=== PATIENT | female | born 1965 | race Caucasian/White ===

== ENCOUNTER 2024-07-14 17:42 | Emergency (ER) | payer MEDICAID, SELFPAY ==
--- NOTE | ~2024-07-14 | XR_ITS ---
CLINICAL HISTORY: cough --- Additional Notes or Special Instructions: ? outpatient pneumothorax 2 view chest x-ray Comparison: None Findings: Small to moderate right pneumothorax. No evidence of pneumonia. Normal size heart. No acute fracture. IMPRESSION: Right pneumothorax. This document has been electronically signed by: Tino Schrader MD on 07/14/2024 18:29:16
[2024-07-14 17:49] VITALS: BP 143/71; PULSE 92; RESP 19; TEMP 36.6; O2SAT 97; BMI 18.9
--- NOTE | 2024-07-14 17:51 | ED.GENADULT ---
HPI - General Adult General Chief complaint: Upper Respiratory Symptoms Stated complaint: pcp sent to re scan found hole in right lung Time Seen by Provider: 07/14/24 18:25 Source: patient Limitations: no limitations History of Present Illness ED Provider: Alley Paredes PA-C HPI narrative: 59-year-old female with self report of mitral valve prolapse, anxiety, chronic pain on opiate therapy secondary to significant degenerative changes, presents given need for thoracic consult. Patient states she was seen by her primary care provider today for her routine annual physical. Months ago, she had been complaining about a cough, they had scheduled an outpatient chest x-ray, to be performed prior to her annual physical. Patient received a call that there was evidence of a small pneumothorax on the chest x-ray, she was advised to come to the emergency department for emergent assessment. The patient denies chest pain, shortness of breath. She states she has a chronic cough, no change in her symptoms. No fevers. Related Data Allergies Allergy/AdvReac Type Severity Reaction Status Date / Time celecoxib [From CELEBREX] Allergy Intermediate HIVES Verified 07/14/24 17:51 ibuprofen [Ibuprofen] Allergy Intermediate HIVES Verified 07/14/24 17:51 NSAIDS (Non-Steroidal Allergy Unknown HIVES Verified 07/14/24 17:51 Anti-Inflamma [NSAIDS (NON-STEROIDAL ANTI-INFLAMMA] paroxetine [From PAXIL] Allergy Unknown HIVES Verified 07/14/24 17:51 Sulfa (Sulfonamide Allergy Unknown HIVES Verified 07/14/24 17:51 Antibiotics) [SULFA(SULFONAMIDE ANTIBIOTICS)] gabapentin [From NEURONTIN] AdvReac Unknown STOMACH Verified 07/14/24 17:51 UPSET steroid Allergy Unknown Uncoded 07/14/24 17:52 Review of Systems Review of Systems: Yes all other systems are reviewed and are negative Constitutional: Constitutional: Denies fatigue, Denies fever(s) and Denies headache(s) ENT: Denies dizziness and Denies headache(s) Cardiovascular: Cardiovascular: Denies chest pain, Denies dyspnea and Denies dyspnea on exertion Respiratory: Respiratory: Denies cough, Denies dyspnea and Denies dyspnea on exertion Gastrointestinal: Gastrointestinal: Denies abdominal pain, Denies nausea and Denies vomiting Neurologic: Denies dizziness and Denies headache(s) Endocrine: Endocrine: Denies fatigue PMFSH Past Medical History Attestation statement: The following information was validated with the patient. Social History Social History Advance Directives: No Advance Directives Information Provided: No Do you have a plan to hurt others: No Plan Physical Exam ED Vital Signs: Vital Signs - 24 hr 07/14/24 17:49 Temperature 98 F Pulse Rate 92 Respiratory Rate 19 Blood Pressure 143/71 H Pulse Oximetry 97 Oxygen Delivery Method Room Air BMI result Body Mass Index 18.9 Const Other: Alert well-appearing Orientation/consciousness: patient oriented x3 Resp Other: Nonlabored respirations, lungs clear to auscultation Cardio Other: Normal peripheral perfusion Skin Other: Warm dry no rash Neuro General: patient oriented x3, gait normal, no focal motor deficits and CN's II-XI intact bilaterally Psych Other: Cooperative Course Course Course Narrative: RME, this is a rapid medical exam performed by Amado Courtney please refer to primary provider for complete H&P- 59-year-old female presents for evaluation of an abnormal outpatient chest x-ray. She had routine labs and chest x-ray prior to a PCP visit coming up and was told that she has a 3 cm ?hole my lung. ? She endorses chronic cough, worse over the last few weeks plan for repeat chest x-ray Consultations Consultation #1: paged surgery Dr. Randall, no one specific on for thoracic, he says he doesn't do chest tubes.....he recommended to call pulmonology he also states that of the patient is asymptomatic it is appropriate for them to follow up as an outpatient for repeat imaging Time: 18:45 Medical Decision Making Medical Decision Making MDM Narrative: 59-year-old female with self report of mitral valve prolapse, anxiety, chronic pain on opiate therapy secondary to significant degenerative changes, presents given need for thoracic consult. Patient states she was seen by her primary care provider today for her routine annual physical. Months ago, she had been complaining about a cough, they had scheduled an outpatient chest x-ray, to be performed prior to her annual physical. Patient received a call that there was evidence of a small pneumothorax on the chest x-ray, she was advised to come to the emergency department for emergent assessment. The patient denies chest pain, shortness of breath. She states she has a chronic cough, no change in her symptoms. No fevers. Patient states she was a prior smoker, she quit tobacco use 7 years ago, she does not have a formal diagnosis of COPD Problem: Prior smoker History: Per patient I have considered the following differential diagnoses: Pneumothorax Plan: We repeated the chest x-ray, there was evidence of a small pneumothorax. I reached out to the surgical service, I explained the situation, given the patient is asymptomatic, the plan is to have her return to the emergency room tomorrow morning to have a repeat chest x-ray. I explained the situation to the patient she is in agreement and on board with the plan. Discussed the case with my attending. I have independently reviewed the following tests: Chest x-ray:Comparison: None Findings: Small to moderate right pneumothorax. No evidence of pneumonia. Normal size heart. No acute fracture. IMPRESSION: Right pneumothorax. Discharge Plan Discharge Clinical Impression: Pneumothorax Patient Disposition: Home, Self-Care Instructions: Spontaneous Pneumothorax (ED) Additional Instructions: You were found to have a small pneumothorax, see home care instructions. It is unclear how long you have had this finding, it could resolve on its own. In his recommended that you return to the emergency department this morning for a repeat chest x-ray. Bring your paperwork back to triage, the provider we will order a chest x-ray for you. Return precautions for the onset of acute shortness of breath and chest pain on the right side, if you develop symptoms overnight, return to the emergency department. Print Language: Citizen Of [place]
[2024-07-14 19:13] VITALS: BP 128/91; PULSE 82; RESP 18; TEMP 36.8; O2SAT 95
[2024-07-14 20:00] VITALS: BP 128/91; PULSE 82; RESP 18; TEMP 36.8
== END 2024-07-14 20:18 | disposition home or self-care (01) ==
PROVIDERS: Emergency Provider Internal Medicine; PCP Family Medicine
DX: J93.9 Pneumothorax, unspecified (principal); R05.9 Cough, unspecified
CPT/HCPCS: 71046; 99283

== ENCOUNTER → 2024-07-14 17:51 | Outpatient (BNV) | payer MEDICAID, SELFPAY | PROVIDERS: Emergency Provider Internal Medicine; PCP Family Medicine; Visit Provider Radiology Diagnostic Radiology | DX: J93.9 Pneumothorax, unspecified (principal) | CPT/HCPCS: 71046 ==

== ENCOUNTER 2024-07-15 11:49 | Emergency (ER) | payer MEDICAID, SELFPAY ==
--- NOTE | ~2024-07-15 | XR_ITS ---
EXAMINATION: XR CHEST CLINICAL INFORMATION: Known Pneumo yesterday. repeat xray COMPARISON: Prior day, 07/14/2024 at 6:01 PM. TECHNIQUE: 2 views of the chest were obtained. FINDINGS: The cardiac, hilar, and mediastinal contours are normal. Lungs demonstrate no significant change in the mild to moderate size right apical and lateral pneumothorax. Maximal pleural separation in the right apex measures 3.0 cm, unchanged. This finding is stable. There is linear atelectasis abutting the superior margin of the pneumothorax. The left lung is clear without evidence of pneumothorax or effusion. There is left apical pleural parenchymal scarring. There is no focal osseous or soft tissue abnormality. XR/XR chest 2V IMPRESSION: 1. No significant interval change. Stable small to moderate-sized right apical and lateral pneumothorax. Electronically signed by: Cristian Lewis MD 07/15/2024 01:00 PM EDT
[2024-07-15 12:28] VITALS: BP 109/65; PULSE 90; RESP 16; TEMP 37; O2SAT 95; BMI 19.8
--- NOTE | 2024-07-15 12:33 | ED.GENADULT ---
HPI - General Adult General Chief complaint: General Medical Stated complaint: Seen yesterday, returning for chest xray Time Seen by Provider: 07/15/24 18:34 Source: patient Mode of arrival: ambulatory Limitations: no limitations History of Present Illness ED Provider: Luis Frey HPI narrative: 59 yold female with known pneumothroax presents to the ED for repeat x-ray. Patient has been coughing for months and yesterday had an outpatient x-ray which showed pneumothorax and patient came to the ED and had a repeat x-ray which showed pneumothorax. ED provider spoke with surgeon windows migration technician yesterday who states patient can be discharged and return to the ED today for repeat x-ray. Presently patient is asymptomatic. Patient denies any chest pain, shortness of breath, weakness, dizziness or neck swelling. Related Data Allergies Allergy/AdvReac Type Severity Reaction Status Date / Time celecoxib [From CELEBREX] Allergy Intermediate HIVES Verified 07/15/24 12:29 ibuprofen [Ibuprofen] Allergy Intermediate HIVES Verified 07/15/24 12:29 NSAIDS (Non-Steroidal Allergy Unknown HIVES Verified 07/15/24 12:29 Anti-Inflamma [NSAIDS (NON-STEROIDAL ANTI-INFLAMMA] paroxetine [From PAXIL] Allergy Unknown HIVES Verified 07/15/24 12:29 Sulfa (Sulfonamide Allergy Unknown HIVES Verified 07/15/24 12:29 Antibiotics) [SULFA(SULFONAMIDE ANTIBIOTICS)] gabapentin [From NEURONTIN] AdvReac Unknown STOMACH Verified 07/15/24 12:29 UPSET steroid Allergy Unknown Uncoded 07/14/24 17:52 Review of Systems Review of Systems: No pneumothorax Yes all other systems are reviewed and are negative [facility] Social History Social History Advance Directives: No Advance Directives Information Provided: No Physical Exam ED Vital Signs: Vital Signs - 24 hr 07/15/24 12:28 07/15/24 18:37 07/15/24 18:56 Temperature 98.6 F 97.3 F 97.3 F Pulse Rate 90 63 63 Respiratory Rate 16 18 18 Blood Pressure 109/65 128/58 L 128/58 L Pulse Oximetry 95 96 96 Oxygen Delivery Method Room Air Room Air Room Air BMI result Body Mass Index 19.8 Const General: cooperative, healthy appearing, comfortable, no acute distress, well developed, alert, awake and Physically active Orientation/consciousness: patient oriented x3 HENMT Head: Yes normal to inspection, Yes No palpable skull fracture present, Yes normocephalic and Yes atraumatic Eyes General: appearance normal, both eyes and all related structures Neck Neck: Yes normal visual inspection, Yes full ROM, Yes no lymphadenopathy, Yes no meningeal signs, Yes trachea midline, Yes supple, No anterior neck swelling and No tender Chest Chest palpation & inspection: normal inspection of the chest and normal palpation of entire chest wall Resp Other: Pneumothorax Effort & Inspection: normal respiratory effort and able to speak in complete sentences Cardio Jugular venous distension: no JVD Heart sounds: S1 normal heart sound present and S2 normal heart sound present GI Inspection: Yes normal to inspection Palpation (GI): Soft to palpation, not firm, nontender, no guarding and not rigid General: Yes no CVA tenderness Back/Spine/Pelvis Back: no CVA tenderness and No back tenderness Skin General skin exam: no rashes or lesions noted, elasticity normal and turgor normal Neuro General: patient oriented x3, gait normal, tone normal, moves all extremities, Normal light touch and pain sensation, no meningeal signs, no focal motor deficits, CN's II-XI intact bilaterally and normal sensation to monofilament Extrem General: Yes normal to inspection, Yes full ROM and Yes capillary refill normal Psych Appearance: grossly normal, well kempt and not disheveled Course Course Course Narrative: RME: 59 female with pneumothorax diagnosed last night was informed to return today for repeat chest x-ray. Patient is presently asymptomatic. We will do repeat chest x-ray Medical Decision Making Medical Decision Making MDM Narrative: 59-year-old female with known pneumo thorax returns to the ED for repeat x-ray as recommended by surgeon yesterday. Patient denies any chest pain or shortness of breath. Patient well-appearing. Negative for any neck swelling or drooling. Negative for any use of accessory muscles. Patient is speaking in clear sentences. Patient was trying to leave from the waiting room until I convince patient to wait. Patient's chest x-ray shows the same size pneumothorax. Case was discussed with Dr. Singh on-call surgeon and was informed of patient's history, physical exam and diagnostics and vitals. She states since patient is stable she can be discharged and she/ the surgeon clinic call her tomorrow for an appointment. Patient and explained worrisome signs and informed to return to the ED immediately. Differential Diagnosis Differential Diagnoses: The differential diagnosis associated with the presentation includes (Pneumothorax) Admission/Observation Consideration of admission/observation: Escalation of care including admission/observation considered Consult Healthcare Provider Management of the patient was discussed with: [employer] Operator [employer] (Dr. Taylor) Lab Data MDM Lab Attestation statement: I reviewed the patient's lab results. Independent Interpretation I performed an independent interpretation of an: Plain X-Ray Radiology Impression Discussion of test interpretation with radiology: I have reviewed the radiologist's reading. Discharge Plan Discharge Clinical Impression: Pneumothorax Patient Disposition: Home, Self-Care Instructions: Spontaneous Pneumothorax (ED) Additional Instructions: Dr. Singh our on-call surgeon states she will call you tomorrow for appointment. Return to the ED immediately for any shortness of breath, chest pain, swelling of the neck, swelling of face, fatigue, passing out, or any other concerning symptoms. EXAMINATION: XR CHEST CLINICAL INFORMATION: Known Pneumo yesterday. repeat xray COMPARISON: Prior day, 07/14/2024 at 6:01 PM. TECHNIQUE: 2 views of the chest were obtained. FINDINGS: The cardiac, hilar, and mediastinal contours are normal. Lungs demonstrate no significant change in the mild to moderate size right apical and lateral pneumothorax. Maximal pleural separation in the right apex measures 3.0 cm, unchanged. This finding is stable. There is linear atelectasis abutting the superior margin of the pneumothorax. The left lung is clear without evidence of pneumothorax or effusion. There is left apical pleural parenchymal scarring. There is no focal osseous or soft tissue abnormality. XR/XR chest 2V IMPRESSION: 1. No significant interval change. Stable small to moderate-sized right apical and lateral pneumothorax. Electronically signed by: Cristian Lewis MD 07/15/2024 01:00 PM EDT Referrals: [facility] [place] General Surgeons [Provider Group] (Spontaneous pneumothorax on repeat x-ray no change) Interventions: ED Discharge Assessment Last Done: 07/15/24 18:56 Discharge Date/Time: 07/15/24 18:57 Print Language: Faroese
[2024-07-15 18:37] VITALS: BP 128/58; PULSE 63; RESP 18; TEMP 36.3; O2SAT 96
[2024-07-15 18:56] VITALS: BP 128/58; PULSE 63; RESP 18; TEMP 36.3; O2SAT 96
--- OUTSIDE RECORDS SUMMARY | 2024-07-15 19:11 | XMS_ITS | Data Portability ---
Author Organization [facility], , [facility] Address [address] [place] [address] Care Team Providers Care Prop Making Supervisor Name Role Phone DOMINIC NOWAK Primary Care Provider NERISSA CASEY Phys. Med. & Rehab CHARLOTTE PEARL Sports Medicine Assessment No assessment recorded. Plan of Treatment Reminders Order Date Submit Date Provider Last Modified By Organization Details Last Modified Time Details Appointments Wellness Visit 30 2024 09:30A M Dominic Nowak MD Not available Not available Not available Lab lipid panel, serum 2024 025 [facility], [address] [place] [address], [address], 07/15/2024 14:28:18 BMP, serum or plasma 2024 025 [facility], [address] [place] [address], [address], 07/15/2024 14:28:17 drug screen, urine - oxycodone & diazepam last intake 05/07/24 10:30 am & 10 am temp 93F 2024 025 [facility], [address] [place] [address], [address], 05/08/2024 09:25:07 benzodiaz epines, quantitat ang confirmat ion, urine - diazepam last intake 05/07/24 10 am temp 93F 2024 025 [facility], [address] [place], [address], 05/12/2024 16:35:25 fecal occult blood, immunoass ay, stool - Lab- Create annual order through [id number] order set. 2023 024 tanisha [facility], [address] [facility], [place], [address], 07/14/2024 13:24:10 Referral dermatolo gist referral - Elena DE LA FUENTE 2024 025 [email or web address], [address], [address], [place], [address], 06/24/2024 10:23:35 Procedures None recorded. Surgeries None recorded. Imaging XR, chest - chronic cough in an ex smoker. 2024 025 [facility] (Imaging), [address], [place], [address], 07/14/2024 15:37:11 US, head + neck, soft tissue - she feels swollen lymph nodes right side 2023 024 [facility] (Imaging), [address], [place], [address], 12/12/2023 15:01:12 Medication Orders A and D (lanolin- petrolatu m) topical ointment 2024 025 [facility] #[id number], [address] [place] [address], [address], 06/23/2024 16:21:34 MG217 Psoriasis (coal tar) 2 % topical ointment 2024 025 [facility][id number], [address] [place] [address], [address], 06/23/2024 16:21:34 Narcan 4 mg/actuat ion nasal spray 2024 025 [facility] #[id number], On [place], [address], 05/07/2024 11:56:56 Patient TargetsNo targets recorded. Patient Instructions Encounter Date Encounter Id Patient Instructions Last Modified By Organization Details Last Modified Time 12/03/2023 [id number] My Health To Do List Specific Analgesia Plan: Continue present regimen Specific Goals for next visit increase exerciseThe patient is currently at their goal of safe, stable use of narcotic pain medication to improve their functioning in life. Since the last visit there has been no activity of concern:# overuse of meds request for an early refill abuse of staff noncomplianc e with UDS or pill count requests abnormal UDS Patient today is at low risk for abuse of meds. Monitoring will include repeat UDS. Patients current goals of more activity were discussed with patient, unlikelihood of 100% reduction in pain made clear. Patient has read narcotics contract and understands the properties of narcotic medication. [email or web address] Not available 12/03/2023 08:04:28 03/05/2024 [id number] My Health To Do List Specific Analgesia Plan: Continue present regimen Specific Goals for next visit increase exerciseThe patient is currently at their goal of safe, stable use of narcotic pain medication to improve their functioning in life. Since the last visit there has been no activity of concern:# overuse of meds request for an early refill abuse of staff noncomplianc e with UDS or pill count requests abnormal UDS Patient today is at low risk for abuse of meds. Monitoring will include repeat UDS. Patients current goals of more activity were discussed with patient, unlikelihood of 100% reduction in pain made clear. Patient has read narcotics contract and understands the properties of narcotic medication. [email or web address] Not available 03/05/2024 11:54:58 05/07/2024 [id number] My Health To Do List Specific Analgesia Plan: Continue present regimen Specific Goals for next visit increase exerciseThe patient is currently at their goal of safe, stable use of narcotic pain medication to improve their functioning in life. Since the last visit there has been no activity of concern:# overuse of meds request for an early refill abuse of staff noncomplianc e with UDS or pill count requests abnormal UDS Patient today is at low risk for abuse of meds. Monitoring will include repeat UDS. Patients current goals of more activity were discussed with patient, unlikelihood of 100% reduction in pain made clear. Patient has read narcotics contract and understands the properties of narcotic medication. [email or web address] Not available 05/07/2024 11:22:17 06/12/2024 [id number] After a discussi on of treatment options, which included consideration of best practices and patient preferences, the above treatment plan and objectives were adopted: [email or web address] Not available 06/12/2024 16:55:17 Reason for Referral Manager Program Management Referral for L ocalized eruption of skin Chesea Cirilo DE LA FUENTE Referring Physician: Woo Quijano, Family Medicine, Encounter Date: 06/12/2024 Results Created Date Observation Date Name Description Value Unit Range Abnormal Flag Note LastModifiedBy Organization Detail LastModifiedTime 03/04/1903/05/2024 DRUG SCREE N-8, URINE , WITH CONFI RMATI ON GC/MS amphetamine NEG. negati ve Not Available [address], [address], 03/05/2024 10:03:45 03/04/1903/05/2024 DRUG SCREE N-8, URINE , WITH CONFI RMATI ON GC/MS barbiturates NEG. negati ve Not Available [address], [address], 03/05/2024 10:03:45 03/04/1903/05/2024 DRUG SCREE N-8, URINE , WITH CONFI RMATI ON GC/MS benzodiazepi ne POS. negati ve Not Available [address], [address], 03/05/2024 10:03:45 03/04/1903/05/2024 DRUG SCREE N-8, URINE , WITH CONFI RMATI ON GC/MS cocaine NEG. negati ve Not Available [address], [address], 03/05/2024 10:03:45 03/04/1903/0503/05/2024 DRUG SCREE N-8, URINE , WITH CONFI RMATI ON GC/MS opiates POS. negati ve Not Available [address], [address], 03/05/2024 10:03:45 03/04/19 25 03/05/2024 DRUG SCREE N-8, URINE , WITH CONFI RMATI ON GC/MS methadone NEG. negati ve Not Available [address], [address], 03/05/2024 10:03:45 03/04/19 25 03/05/2024 DRUG SCREE N-8, URINE , WITH CONFI RMATI ON GC/MS fentanyl NEG. negati ve Syva EMIT II Limit s of Detec tion (cutt -off value s) Suzie Expan d: Amphe tamin es: 1000 ng/ml Opiat es: 300 ng/ml Tyra tuate s: 200 ng/ml Oxyco done 100 ng/ml Benzo diaze pines : 200 ng/ml Metha done 300 ng/ml Cocai ne: 300 ng/ml Fenta nyl 1 ng/ml Not Available [address], [address], 03/05/2024 10:03:45 03/04/19 25 03/05/2024 DRUG SCREE N-8, URINE , WITH CONFI RMATI ON GC/MS oxycodone POS. negati ve GCMS= Sampl e sent to [facility] for confi rmati on by GC/MS . Not Available [address], [address], 03/05/2024 10:03:45 03/04/19 25 03/07/2024 DRUG TOX MONIT ORING BENZO DIAZE PINES , QN, U alphahydroxy alprazolam NEGATI VE NG/mL <25 See Note 1 Not Available [facility] [place] [facility] [address] [place] [address], [place], [address], 03/07/2024 17:28:12 03/04/19 25 03/07/2024 DRUG TOX MONIT ORING BENZO DIAZE PINES , QN, U alphahydroxy midazolam NEGATI VE NG/mL <50 See Note 1 Not Available [facility] [place] [facility] [address], [address], 03/07/2024 17:28:12 03/04/19 25 03/07/2024 DRUG TOX MONIT ORING BENZO DIAZE PINES , QN, U alphahydroxy triazolam NEGATI VE NG/mL <50 See Note 1 Not Available [facility] [place] [facility] [address], [place], [address], 03/07/2024 17:28:12 03/04/19 25 03/07/2024 DRUG TOX MONIT ORING BENZO DIAZE PINES , QN, U aminoclonaze joesph NEGATI VE NG/mL <25 See Note 1 Not Available [facility] [place] [facility] [address], [place], [address], 03/07/2024 17:28:12 03/04/19 25 03/07/2024 DRUG TOX MONIT ORING BENZO DIAZE PINES , QN, U hydroxyethyl flurazepam NEGATI VE NG/mL <50 See Note 1 Not Available [facility] [place] [facility] [address], [place], [address], 03/07/2024 17:28:12 03/04/19 25 03/07/2024 DRUG TOX MONIT ORING BENZO DIAZE PINES , QN, U lorazepam NEGATI VE NG/mL <50 See Note 1 Not Available [facility] [place] [facility] [address], [place], [address], 03/07/2024 17:28:12 03/04/19 25 03/07/2024 DRUG TOX MONIT ORING BENZO DIAZE PINES , QN, U nordiazepam 212 NG/mL <50 high See Note 1 Not Available [facility] [place] [facility] [address], [place], [address], 03/07/2024 17:28:12 03/04/19 25 03/07/2024 DRUG TOX MONIT ORING BENZO DIAZE PINES , QN, U oxazepam 515 NG/mL <50 high See Note 1 Not Available [facility] [place] [facility] [address], [place], [address], 03/07/2024 17:28:12 03/04/19 25 03/07/2024 DRUG TOX MONIT ORING BENZO DIAZE PINES , QN, U temazepam 400 NG/mL <50 high See Note 1 Not Available [facility] [place] [facility] [address], [place], [address], 03/07/2024 17:28:12 03/04/19 25 03/07/2024 DRUG TOX MONIT ORING BENZO DIAZE PINES , QN, U Unknown Analyte See Note 2 Not Available [facility] [place] [facility] [address], [place], [address], 03/07/2024 17:28:12 03/04/19 25 03/07/2024 DRUG TOX MONIT ORING OPIAT ES EXPAN DED QN, U codeine NEGATI VE NG/mL <50 See Note 1 Not Available [facility] [place] [facility] [address], [place], [address], 03/07/2024 17:28:13 03/04/19 25 03/07/2024 DRUG TOX MONIT ORING OPIAT ES EXPAN DED QN, U hydrocodone NEGATI VE NG/mL <50 See Note 1 Not Available [facility] [place] [facility] [address], [place], [address], 03/07/2024 17:28:13 03/04/19 25 03/07/2024 DRUG TOX MONIT ORING OPIAT ES EXPAN DED QN, U hydromorphon e NEGATI VE NG/mL <50 See Note 1 Not Available [facility] [place] [facility] [address], [place], [address], 03/07/2024 17:28:13 03/04/19 25 03/07/2024 DRUG TOX MONIT ORING OPIAT ES EXPAN DED QN, U morphine NEGATI VE NG/mL <50 See Note 1 Not Available [facility] [place] [facility] [address], [place], [address], 03/07/2024 17:28:13 03/04/19 25 03/07/2024 DRUG TOX MONIT ORING OPIAT ES EXPAN DED QN, U norhydrocodo ne NEGATI VE NG/mL <50 See Note 1 Not Available [facility] [place] [facility] [address], [place], [address], 03/07/2024 17:28:13 03/04/19 25 03/07/2024 DRUG TOX MONIT ORING OPIAT ES EXPAN DED QN, U noroxycodone 4373 NG/mL <50 high See Note 1 Not Available [facility] [place] [facility] [address], [place], [address], 03/07/2024 17:28:13 03/04/19 25 03/07/2024 DRUG TOX MONIT ORING OPIAT ES EXPAN DED QN, U oxycodone 1760 NG/mL <50 high See Note 1 Not Available [facility] [place] [facility] [address], [address], 03/07/2024 17:28:13 03/04/19 25 03/07/2024 DRUG TOX MONIT ORING OPIAT ES EXPAN DED QN, U oxymorphone 3951 NG/mL <50 high See Note 1 Not Available [facility] [place] [facility] [address], [address], 03/07/2024 17:28:13 03/04/19 25 03/07/2024 DRUG TOX MONIT ORING OPIAT ES EXPAN DED QN, U Unknown Analyte See Note 2 Note 1 This test was devel joseped and its anna tical perfo rmanc e chandler cteri stics have been deter mined by [facility]. It has not been clear ed or appro seferino by the FDA. This assay has been valid ated pursu ant to the CLIA regul ation s and is used for clini lizzette purpo ses. Note 2 This drug testi ng is for medic al treat ment only. Anna sis was perfo rmed as non-f orens ic testi ng and these resul ts shoul d be used only by healt hcare provi ders to rende r diagn osis or treat ment, or to monit or progr ess of medic al condi tions . For denisse tance with inter preti ng these drug resul ts, pleas e conta ct a [facility] Toxic ology Speci alist : [phone] ( [phone] ), M-F, 8am-6 pm EST. Not Available [facility] [address], [place], [address], 03/07/2024 17:28:13 05/08/19 25 05/08/2024 DRUG SCREE N-8, URINE , WITH CONFI RMATI ON GC/MS amphetamine NEG. negati ve Not Available [address], [address], 05/08/2024 09:25:07 05/08/19 25 05/08/2024 DRUG SCREE N-8, URINE , WITH CONFI RMATI ON GC/MS barbiturates NEG. negati ve Not Available [address], [address], 05/08/2024 09:25:07 04/02/05/08/2024 DRUG SCREE N-8, URINE , WITH CONFI RMATI ON GC/MS benzodiazepi ne POS. negati ve Not Available [address], [address], 05/08/2024 09:25:07 05/08/1905/08/2024 DRUG SCREE N-8, URINE , WITH CONFI RMATI ON GC/MS cocaine NEG. negati ve Not Available [address], [address], 05/08/2024 09:25:07 05/08/1905/08/2024 DRUG SCREE N-8, URINE , WITH CONFI RMATI ON GC/MS opiates POS. negati ve GCMS= Sampl e sent to [facility] for confi rmati on by GC/MS . Not Available [address], [address], 05/08/2024 09:25:07 05/08/1905/08/2024 DRUG SCREE N-8, URINE , WITH CONFI RMATI ON GC/MS methadone NEG. negati ve Not Available [address], [address], 05/08/2024 09:25:07 05/08/1905/08/2024 DRUG SCREE N-8, URINE , WITH CONFI RMATI ON GC/MS fentanyl NEG. negati ve Syva EMIT II Limit s of Detec tion (cutt -off value s) [place] Expan d: Amphe tamin es: 1000 ng/ml Opiat es: 300 ng/ml Tyra tuate s: 200 ng/ml Oxyco done 100 ng/ml Benzo diaze pines : 200 ng/ml Metha done 300 ng/ml Cocai ne: 300 ng/ml Fenta nyl 1 ng/ml Not Available [address], [address], 05/08/2024 09:25:07 05/08/1905/08/2024 DRUG SCREE N-8, URINE , WITH CONFI RMATI ON GC/MS oxycodone POS. negati ve GCMS= Sampl e sent to [facility] for confi rmati on by GC/MS . Not Available [address], [place], [address], 05/08/2024 09:25:07 05/08/19 25 05/11/2024 DRUG TOX MONIT ORING BENZO DIAZE PINES , QN, U alphahydroxy alprazolam NEGATI VE NG/mL <25 See Note 1 Not Available [facility] [address], [address], 05/12/2024 16:35:25 05/08/19 25 05/11/2024 DRUG TOX MONIT ORING BENZO DIAZE PINES , QN, U alphahydroxy midazolam NEGATI VE NG/mL <50 See Note 1 Not Available [facility] [address], [address], 05/12/2024 16:35:25 05/08/19 25 05/11/2024 DRUG TOX MONIT ORING BENZO DIAZE PINES , QN, U alphahydroxy triazolam NEGATI VE NG/mL <50 See Note 1 Not Available [facility] [address], [address], 05/12/2024 16:35:25 05/08/19 25 05/11/2024 DRUG TOX MONIT ORING BENZO DIAZE PINES , QN, U aminoclonaze joesph NEGATI VE NG/mL <25 See Note 1 Not Available [facility] [address], [address], 05/12/2024 16:35:25 05/08/19 25 05/11/2024 DRUG TOX MONIT ORING BENZO DIAZE PINES , QN, U hydroxyethyl flurazepam NEGATI VE NG/mL <50 See Note 1 Not Available [facility] [address] [place], [address], 05/12/2024 16:35:25 05/08/19 25 05/11/2024 DRUG TOX MONIT ORING BENZO DIAZE PINES , QN, U lorazepam NEGATI VE NG/mL <50 See Note 1 Not Available [facility] [place] [facility] [address], [place], [address], 05/12/2024 16:35:25 05/08/19 25 05/11/2024 DRUG TOX MONIT ORING BENZO DIAZE PINES , QN, U nordiazepam 444 NG/mL <50 high See Note 1 Not Available [facility] [place] [facility] [address], [place], [address], 05/12/2024 16:35:25 05/08/19 25 05/11/2024 DRUG TOX MONIT ORING BENZO DIAZE PINES , QN, U oxazepam 1201 NG/mL <50 high See Note 1 Not Available [facility] [place] [facility] [address], [place], [address], 05/12/2024 16:35:25 05/08/19 25 05/11/2024 DRUG TOX MONIT ORING BENZO DIAZE PINES , QN, U temazepam 802 NG/mL <50 high See Note 1 Not Available [facility] [address], [place], [address], 05/12/2024 16:35:25 05/08/19 25 05/11/2024 DRUG TOX MONIT ORING BENZO DIAZE PINES , QN, U Unknown Analyte See Note 2 Not Available [facility] [place] [facility] [address], [place], [address], 05/12/2024 16:35:25 05/08/19 25 05/11/2024 DRUG TOX MONIT ORING OPIAT ES EXPAN DED QN, U codeine NEGATI VE NG/mL <50 See Note 1 Not Available [facility] [place] [facility] [address], [place], [address], 05/12/2024 16:35:26 05/08/19 25 05/11/2024 DRUG TOX MONIT ORING OPIAT ES EXPAN DED QN, U hydrocodone NEGATI VE NG/mL <50 See Note 1 Not Available [facility] [place] [facility] [address], [place], [address], 05/12/2024 16:35:26 05/08/19 25 05/11/2024 DRUG TOX MONIT ORING OPIAT ES EXPAN DED QN, U hydromorphon e NEGATI VE NG/mL <50 See Note 1 Not Available [facility] [place] [facility] [address], [place], [address], 05/12/2024 16:35:26 05/08/19 25 05/11/2024 DRUG TOX MONIT ORING OPIAT ES EXPAN DED QN, U morphine NEGATI VE NG/mL <50 See Note 1 Not Available [facility] [place] [facility] [address], [place], [address], 05/12/2024 16:35:26 05/08/19 25 05/11/2024 DRUG TOX MONIT ORING OPIAT ES EXPAN DED QN, U norhydrocodo ne NEGATI VE NG/mL <50 See Note 1 Not Available [facility] [place] [facility] [address], [place], [address], 05/12/2024 16:35:26 05/08/19 25 05/11/2024 DRUG TOX MONIT ORING OPIAT ES EXPAN DED QN, U noroxycodone >91669 NG/mL <50 high See Note 1 Not Available [facility] [place] [facility] [address], [place], [address], 05/12/2024 16:35:26 05/08/19 25 05/11/2024 DRUG TOX MONIT ORING OPIAT ES EXPAN DED QN, U oxycodone 4637 NG/mL <50 high See Note 1 Not Available [facility] [place] [facility] [address], [place], [address], 05/12/2024 16:35:26 05/08/19 25 05/11/2024 DRUG TOX MONIT ORING OPIAT ES EXPAN DED QN, U oxymorphone 7131 NG/mL <50 high See Note 1 Not Available [facility] [place] [facility] [address], [place], [address], 05/12/2024 16:35:26 05/08/19 25 05/11/2024 DRUG TOX MONIT ORING OPIAT ES EXPAN DED QN, U Unknown Analyte See Note 2 Note 1 This test was ady may and its anna tical perfo rmanc e chandler cteri stics have been deter mined by [facility]. It has not been clear ed or appro seferino by the FDA. This assay has been valid ated pursu ant to the CLIA regul ation s and is used for clini lizzette purpo ses. Note 2 This drug testi ng is for medic al treat ment only. Anna sis was perfo rmed as non-f orens ic testi ng and these resul ts shoul d be used only by healt hcare provi ders to rende r diagn osis or treat ment, or to monit or progr ess of medic al condi tions . For denisse tance with inter preti ng these drug resul ts, pleas e conta ct a [facility] Toxic ology Speci alist : [phone] ( [phone] ), M-F, 8am-6 pm EST. Not Available [facility] [place] [facility] [address], [place], [address], 05/12/2024 16:35:26 07/15/19 25 07/15/2024 BASIC METAB OLIC PANEL glucose 92 mg/dL 70-100 Not Available [address], [address], 07/15/2024 14:28:17 07/15/19 25 07/15/2024 BASIC METAB OLIC PANEL BUN 6 mg/dL 7-18 low Not Available [address], [address], 07/15/2024 14:28:17 07/15/19 25 07/15/2024 BASIC METAB OLIC PANEL creatinine 0.7 mg/dL 0.8-1. 3 low Not Available [address], [address], 07/15/2024 14:28:17 07/15/19 25 07/15/2024 BASIC METAB OLIC PANEL B/C 8.6 ratio Not Available [address], [address], 07/15/2024 14:28:17 07/15/1907/15/2024 BASIC METAB OLIC PANEL GFR >=60ML /MIN mL/mi n normal >=60m L/min - Samina l or midly reduc ed <60mL /min- Decre ased kidne y funct ion <15mL /min - Kidne y failu re [facility] calcu lates estim ated Glome rular Filtr ation Rate (eGFR ) using the Chron ic Kidne y Disea se Epide miolo gy Colla borat ion (CKD- EPI) Equat ion (Neris r et. al 2020) as recom dory d by the Natio nal Kidne y Found ation . eGFR is based on age, serum creat inine , and sex. CKD-E PI does not calcu late eGFR by race, does not apply to child ginger (age <18 years ), and shoul d not be used in pregn catina. Not Available [address], [address], 07/15/2024 14:28:17 07/15/19 25 07/15/2024 BASIC METAB OLIC PANEL sodium 140 mmol/ L 136-14 5 Not Available [address], [address], 07/15/2024 14:28:17 07/15/1907/15/2024 BASIC METAB OLIC PANEL potassium 4.4 mmol/ L 3.5-5. 1 Not Available [address], [address], 07/15/2024 14:28:17 07/15/1907/15/2024 BASIC METAB OLIC PANEL chloride 102 mmol/ L 96-107 Not Available [address], [address], 07/15/2024 14:28:17 07/15/1907/15/2024 BASIC METAB OLIC PANEL anion gap 7.8 5.0-15 .0 Not Available [address], [address], 07/15/2024 14:28:17 07/15/1907/15/2024 BASIC METAB OLIC PANEL CO2 30 mmol/ L 21-32 Not Available [address], [address], 07/15/2024 14:28:17 07/15/1907/15/2024 BASIC METAB OLIC PANEL calcium 8.8 mg/dL 8.5-10 .3 Not Available [address], [address], 07/15/2024 14:28:17 07/15/1907/15/2024 LIPID PANEL cholesterol 232 mg/dL <200 mg/dl Kaila able 200-2 39 mg/dl Borde rline High >240 mg/dl High Not Available [address], [address], 07/15/2024 14:28:18 07/15/1907/15/2024 LIPID PANEL triglyceride s 63 mg/dL <150 mg/dL Samina l 150-1 99 mg/dL Borde rline High 200-4 99 mg/dL High >500 mg/dL Very High Not Available [address], [address], 07/15/2024 14:28:18 07/15/19 25 07/15/2024 LIPID PANEL direct HDL 81 mg/dL <40 mg/dl - Major Risk for CHD >60 mg/dl - Negat ang Risk for CHD Not Available [facility] [address] [place], [address], 07/15/2024 14:28:18 12/12/19 24 12/12/2023 US, head + neck, soft tissu e CLINIC AL HISTOR Y: Right- sided neck swelli ng/cer vical lympha denopa thy TECHNI QUE: 2D Sonogr aphy of the neck perfor med. COMPAR ION: None. FINDIN GS: The skin and subcut aneous tissue s appear unrema rkable . There is no suspic ious mass or shadow ing. No lympha denopa thy is visual ized. Images of the area of lympha denopa thy as direct ed by the patien t includ e the right caroti d artery . IMPRES GABRIEL: No sonogr aphic abnorm ality in the area of the patien t's neck lump. Readin g Physic tra: Valeria Fowler ms [email or web address] [facility] ([facility]) [address], [place], [address], 01/17/2024 08:04:54 07/15/1907/14/2024 XR, chest CLINIC AL HISTOR Y: Cough. TECHNI QUE: Fronta l view and latera l view of the chest obtain ed. COMPAR ION: None. FINDIN GS: The heart is normal in size and config uratio n.Ther e is no hilar or medias tinal enlarg ement. There is a right- sided pneumo thorax with maximu m separa tion betwee n the viscer al and pariet al pleura measur ed at 3 cm. There is no focal lung consol idatio n or infilt rate. The bony thorax is intact . IMPRES GABRIEL: Right pneumo thorax . This report will be called to the referr ric brooke er or da brooke er. Angélica Holliday tra: Valeria Fowler ms [facility] (Imaging) [address], [place], [address], 07/14/2024 17:14:14 07/15/19 25 07/14/2024 XR, chest , 2 view No observ ation record ed. [address], [address], 07/15/2024 13:42:05 07/15/19 25 07/14/2024 XR, chest No observ ation record ed. [address], [address], 07/15/2024 13:42:05 07/16/19 25 07/15/2024 XR, chest No observ ation record ed. [id number] [place], [address], 07/15/2024 15:20:20 Result Notes None recorded. Problems Name Problem SNOMED Code Status Onset Date Resolution Date Notes Provider Name and Address Organization Details Recorded Time Hysterect chad Active 2009 Dominic Nowak MD [address] [place], [place] [address] [place], [address], [facility] [place] 14:30:07 Mitral valve prolapse 117698634 Active 2024 Dominic Nowak MD [address] [place], [place] [address], [address], [facility] [place] 22:24:33 Tension-t ype headache 581868006 Active 2024 Dominic Nowak MD [address] [place], [place] [address], [address], [facility] [place] 22:24:35 Recurrent major depressio n [id number] Active 2024 Dominic Nowak MD [address] [place], [place] [address], [address] 1, [facility] 22:24:37 Contusion [id number] Completed 200209/07/2011 Dominic Nowak MD [facility] [place], [address], [facility] 6 11:49:06 Hyperthyr oidism 39301447 [place], [address], [facility] 8 15:19:32 Migraine without aura 06318837 Active 2003 every couple of [place], [address], [facility] 6 12:23:32 Drug dependenc e 168081416 Active 2003 Dominic Nowak MD [facility] [place], [address], [facility] 6 11:49:06 Migraine with aura 3305982 Completed 200309/07/2011 Dominic Nowak MD [facility] [place], [address], [facility] 6 11:49:06 Neck pain 94843095 Completed 200212/25/2012 [place], [address], [facility] 6 11:49:06 Anxiety state 165705896 Active [place], [address], [facility] 6 12:23:32 Sunburn Completed 200309/07/2011 [place], [address], [facility] 6 11:49:06 Adverse reaction to substance 988215319 Completed 200209/07/2011 Dominic Nowak MD [address] [place] [address] [place], [address], [facility] 6 11:49:06 Disorder of teeth AND/OR supportin g structure s 804020002 Active 2003 Dominic Nowak MD [address] [place], [place] [address], [address], [facility] 6 11:49:06 Knee pain Completed 200212/25/2012 hips Dominic Nowak MD [address] [place], [place] [address], [address], [facility] 6 11:49:06 Verruca vulgaris 85803696 Completed 200209/07/2011 Dominic Nowak MD [address] [place] [address] [place], [address], [facility] 6 11:49:06 Chronic pain 98743891 Active Dominic Nowak MD [facility] [place], [address], [facility] 6 12:23:32 Sprain of knee and leg Completed 200209/07/2011 Dominic Nowak MD [address] [place], [place] [address], [address], [facility] 6 11:49:06 Low back pain 507617188 Active 2002 Dominic Nowak MD [address] [place], [place] [address], [address], [facility] 6 11:49:06 Conjuncti vitis 1914689 Completed 09/07/2011 Dominic Nowak MD [address] [place] [address] [place], [address], [facility] 6 11:49:06 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 92589613 Active 2002 ongoing 2011 Dominic Nowak MD [address] [place] [address] [place], [address], [facility] 11:49:06 Backache 009817913 Completed 200212/25/2012 upper back; see above Dominic Nowak MD [address] [place], [place] [address], [address], [facility] 6 11:49:06 Pain in limb 56593629 Completed 200212/25/2012 knees Dominic Nowak MD [address] [place], [place] [address], [address], [facility] 11:49:06 Neck sprain 445408872 Completed 200309/07/2011 Dominic Nowak MD [address] [place], [place] [address], [address], [facility] 6 11:49:06 Sialoaden itis 51874650 Completed 200209/07/2011 Dominic Nowak MD [address] [place], [place] [address], [address], [facility] 6 11:49:06 Problem Notes None recorded. Procedures Surgical History Date Name Laterality Status Provider Name and Address Organization Details Recorded Time 5 Smoking cessation counseling completed Whitley Bran MA [facility] 05/07/2024 11:26:17 5 Smoking cessation counseling completed Cynthia Hubbard MA [facility] 03/05/2024 12:07:05 4 Smoking cessation counseling completed JINNY Garcia [facility] 07/24/2023 12:30:09 4 Smoking cessation counseling completed Aguila Henson MA [facility] 03/07/2023 11:38:19 3 Smoking cessation counseling completed JINNY Garcia [facility] 01/01/2023 14:00:44 3 Smoking cessation counseling completed Jo-Ann Damon MA [facility] 02/23/2022 13:53:33 0 prevention-car diovascular risk reduction counseling completed Deanne Alcantara MA [facility] 12/23/2019 08:27:03 0 prevention-clari ual alcohol misuse screening completed Deanne Alcantara MA [facility] 12/23/2019 08:27:03 0 Smoking cessation counseling completed Deanne Alcantara MA [facility] 03/18/2019 14:16:15 0 Carbon Monoxide Testing completed Deanne Alcantara MA [facility] 03/18/2019 14:16:15 9 POC Urinalysis Testing completed Deanne Alcantara MA [facility] 01/23/2019 08:06:39 9 Smoking cessation counseling completed Deanne Alcantara MA [facility] 11/21/2018 11:42:06 9 Smoking cessation counseling completed Deanne Alcantara MA [facility] 05/28/2018 16:02:03 8 Smoking cessation counseling completed Deanne Alcantara MA [facility] 12/04/2017 14:51:02 8 Carbon Monoxide Testing completed Deanne Alcantara MA [facility] 12/04/2017 14:51:02 8 Smoking cessation counseling completed Minda David LPN [facility] 04/10/2017 14:03:42 8 Carbon Monoxide Testing completed Minda David [employer] [facility] 04/10/2017 14:04:45 7 Smoking cessation counseling completed Falguni Tarango LPN [facility] 12/26/2016 14:29:33 7 Carbon Monoxide Testing completed Falguni Tarango LPN [facility] 12/26/2016 14:29:33 7 Smoking cessation counseling completed Falguni Tarango LPN [facility] 11/29/2016 11:37:34 7 Carbon Monoxide Testing completed Falguni Tarango LPN [facility] 11/29/2016 11:37:34 7 Smoking cessation counseling completed Karina Beverly [facility] 09/25/2016 13:40:18 7 Carbon Monoxide Testing completed Karina Beverly [facility] 09/25/2016 13:40:18 7 Smoking cessation counseling completed Susan Cooper [facility] 03/29/2016 11:28:57 7 Carbon Monoxide Testing completed Susan Cooper [facility] 03/29/2016 11:34:22 7 Smoking cessation counseling completed Dominic Nowak MD [address] [place], [address] 02/09/2016 12:53:57 6 Refraction completed Destinee Barbermo [facility] 11/17/2015 14:39:23 6 Smoking cessation counseling completed Claire Caldwell [facility] 08/24/2015 15:18:11 3 Smoking cessation counseling completed Vaibhav Mayo [facility] 12/06/2012 11:24:42 3 Smoking cessation counseling completed Vaibhav Mayo [facility] 04/25/2012 10:56:44 1 Smoking cessation counseling completed Dominic Nowak MD [address] [place] [address], [address], [facility] 12/22/2010 10:54:31 Imaging Results None recorded. Procedure Notes None recorded. Medical Equipment None Reported. Allergies Allergen ID Allergen Name Allergen Category Reaction Reaction Severity Criticality Documentation Date Start Date Code Code System Note Provider Name and Address Organization Details Recorded Time 710720 Pepcid medicatio n Not available Not available Not available 10/20/2011 45362 8 RxNorm diarr hea, upset stoma ch Bisi Echols LPN [facility] 2 14:18:01 466569 Prozac medicatio n diarrhea nausea Not available Not available Not available 01/18/2012 17592 RxNorm H/A Ann Diaz [facility] 2 11:38:59 764946 amitripty line medicatio n Not available Not available Not available 03/14/2012 704 RxNorm felt nelson Tarango LPN [facility] 3 11:16:56 559612 prednison e medicatio n Not available Not available Not available 09/25/2016 8640 [facility] 7 13:38:15 46959 ibuprofen medicatio n hives Not available Not available 08/12/2010 5640 RxNorm Not Available [facility] 1 06:05:41 65772 Non-stero idal anti-infl ammatory agent (product) medicatio n hives Not available Not available 08/12/2010 17351 005 SNOMED Not Available [facility] 1 06:05:41 84507 Substance with sulfonami de structure and antibacte rial mechanism of action (substanc e) medicatio n hives Not available Not available 08/12/2010 02869 8003 SNOMED Not Available [facility] 1 06:05:41 70560 gabapenti n medicatio n hives Not available Not available 09/23/2010 87133 RxNorm Not Available [facility] 1 06:05:41 Medications Name Sig Start Date Stop Date Status Note LastModified by Organization Details LastModified Time Prescript ion - Prior Authoriza tion Request 11/29 completed [facility] Corgard Not Available Not Available Not Available morphine ER 30 mg 24 hr capsule,e xtended release Take 1 capsule twice a day by oral route. active Not Available Not Available No t Available Corgard 20 mg tablet 1 PO QD 2013 active Not Available Not Available Not Avai lable clonidine HCl 0.1 mg tablet TAKE 1 TABLET BY MOUTH THREE TIMES A DAY FOR 7 DAYS 10/31 completed Not Available Not Available Not Available tizanidin e 2 mg tablet TAKE 1 TABLET BY MOUTH TWICE A DAY active Not Available Not Available No t Available trazodone 50 mg tablet Take 1 tablet every day by oral route for 30 days. 12/26 completed no longer on Not Available Not Available Not Available Drisdol 1,250 mcg (50,000 unit) capsule take 1 capsule (50,000 unit) by oral route once weekly for 8 weeks then repeat labs. 2011 active Not Available Not Available Not Avai lable OxyContin 20 mg tablet,ex tended release TAKE 1 TABLET BY MOUTH TWICE A DAY active Not Available Not Available No t Available Ultram 50 mg tablet Take 1 tablet every 6 hours by oral route for 7 days. 10/12 completed Not Available Not Available Not Available lamotrigi ne 25 mg tablet Take 1 tablet every day by oral route for 14 days. 01/17 completed Not Available Not Available Not Available oxycodone 15 mg tablet TAKE 1 TABLET BY MOUTH 3 TIMES A DAY NEEDED 05/29 completed Not Available Not Available Not Available propranol ol 10 mg tablet TAKE 1 TABLET BY MOUTH THREE TIMES A DAY FOR 90 DAYS active Not Available Not Available No t Available amitripty line 25 mg tablet Take 2 tablets every day by oral route for 30 days. 2011 active Not Available Not Available Not Avai lable lorazepam 0.5 mg tablet TAKE 1/2 TABLET BY MOUTH TWICE A DAY FOR 12 DAYS. 10/31 completed Not Available Not Available Not Available Percocet 10 mg-325 mg tablet Take 1 tablet every 6 hours by oral route as directed . active Dr. Ruiz Not Available Not Available Not Available calcitoni n (salmon) 200 unit/actu ation nasal spray USE 1 SPRAY IN ONE NOSTRIL DAILY *ALTERNA TE NOSTRILS DAILY* 11/16 completed Not Available Not Available Not Available diazepam 2 mg tablet TAKE 1 AND 1/4 TABLETS BY MOUTH NEEDED FOR 28 DAYSD UE 06/24/24* active Not Available Not Available No t Available Nicoderm CQ 14 mg/24 hr daily transderm al patch Apply 1 patch every day by transder mal route for 14 days. 01/05 completed Not Available Not Available Not Available baclofen 10 mg tablet TAKE 1 TABLET BY MOUTH 3 TIMES A DAY NEEDED 11/16 completed Not Available Not Available Not Available triamcino lone acetonide 0.1 % topical ointment APPLY THIN COAT TO AFFECTED AREA TWICE A DAY 01/01 completed Not Available Not Available Not Available carbamaze pine 100 mg chewable tablet CHEW 1 TABLET BY MOUTH TWICE A DAY 11/29 completed Not Available Not Available Not Available nicotine 21 mg/24 hr daily transderm al patch Apply 1 patch every day by transder mal route for 28 days. 02/08 completed not taking at moment Not Available Not Available Not Available gabapenti n 300 mg capsule Take 1 capsule (300 mg) by oral route daily x 3 days then increase to one tab twice a day for 3 days then increase to one tab 3 times per day 2010 active Not Available Not Available Not Avai lable omeprazol e 20 mg capsule,d elayed release TAKE 1 CAPSULE BY MOUTH EVERY DAY 12/22 completed Not Available Not Available Not Available [place] 10 mg-325 mg tablet Take 1 tablet 3 times a day by oral route as directed . active [facility] [place] Not Available Not Available Not Available oxycodone 30 mg tablet TAKE 1 TABLET BY MOUTH 3 TIMES A DAY 11/16 completed Not Available Not Available Not Available lorazepam 1 mg tablet TAKE 1 TABLET BY MOUTH TWICE A DAY 12/26 completed no longer on Not Available Not Available Not Available diazepam 10 mg tablet TAKE 1 TABLET BY MOUTH 3 TIMES A DAY active Not Available Not Available No t Available ibuprofen 600 mg tablet Take 1 tablet 3 times a day by oral route for 7 days. 10/31 completed Not Available Not Available Not Available Pepcid 20 mg tablet Take 1 tablet twice a day by oral route for 30 days. 2011 active Not Available Not Available Not Avai lable Corgard 40 mg tablet TAKE 1 TABLET BY MOUTH EVERY DAY 03/05 completed not current 03/07/23 tb not taking 12/03/23 am Not Available Not Available Not Available Zoloft 25 mg tablet Take 1 tablet every day by oral route for 30 days. 04/13 completed Not Available Not Available Not Available dicyclomi ne 10 mg capsule TAKE 1 CAPSULE BY MOUTH FOUR TIMES A DAY FOR 7 DAYS 10/31 completed Not Available Not Available Not Available diazepam 5 mg tablet TAKE 1 TABLET BY MOUTH TWICE A DAY 03/29 completed Not Available Not Available Not Available amoxicill in 875 mg-potass ium clavulana te 125 mg tablet TAKE 1 TABLET BY MOUTH EVERY 12 HOURS FOR 7 DAYS. active Not Available Not Available No t Available nicotine 7 mg/24 hr daily transderm al patch Apply 1 patch every day by transder mal route for 28 days. 12/09 completed Not Available Not Available Not Available oxycodone 5 mg tablet TAKE 1 TABLET BY MOUTH 4 TIMES A DAY FOR 28 DAYSD UE 07/09/24 * active Not Available Not Available No t Available hydroxyzi ne pamoate 25 mg capsule TAKE ONE CAPSULE BY MOUTH EVERY 8 HOURS NEEDED 03/29 completed Not Available Not Available Not Available naloxone 0.4 mg/mL injection syringe Take by nasal route for suspecte d opioid overdose . [place] 1 mL in each nostril. Repeat after 3 minutes if no or minimal response . 11/29 completed Not Available Not Available Not Available nicotine (polacril ex) 4 mg buccal lozenge Take 1 tablet every 2 hours by oral route for 8 days. 02/08 completed not taking at moment Not Available Not Available Not Available JAMES-COLA CE 8.6 mg-50 mg tablet Take 2 tablets every day by oral route. 2014 active Not Available Not Available Not Rikki jennings duloxetin e 20 mg capsule,d elayed release TAKE 1 CAPSULE BY MOUTH EVERY DAY 12/09 completed Not Available Not Available Not Available chlorhexi dine gluconate 0.12 % mouthwash SWISH WITH 1 CAPUFUL, HOLD FOR 2 MINS THEN SPIT OUT 3 TIMES A DAY AFTER MEALS active Not Available Not Available No t Available oxycodone 20 mg tablet TAKE 1 TABLET BY MOUTH 3 TIMES A DAY 05/28 completed Not Available Not Available Not Available oxycodone 10 mg tablet 1-2 tabs every 6 hours max 6 tabs daily 2018 active Not Available Not Available Not Rikki jennings diclofena c 1 % topical gel APPLY 2 GRAMS TO THE AFFECTED AREA(S) BY TOPICAL ROUTE 4 TIMES PER DAY; do not use more than 32 grams total daily 12/23 completed Not Available Not Available Not Available lidocaine 5 % topical ointment USE 2 GRAMS TOPICALL Y EVERY 8 HOURS 02/08 completed Not Available Not Available Not Available A and D (lanolin- petrolatu m) topical ointment apply to affected area as needed during day 2024 active Not Available Not Available Not Rikki jennings MG217 Psoriasis (coal tar) 2 % topical ointment apply to affected area BID 05/19/ 2025 active Not Available Not Available Not Avai lable OxyContin 40 mg tablet,cr ush resistant ,extended release TAKE 1 TABLET BY MOUTH TWICE A DAY 08/23 completed Not Available Not Available Not Available OxyContin 20 mg tablet,cr ush resistant ,extended release TAKE 1 TABLET BY MOUTH TWICE A DAY FOR PAIN 11/16 completed Not Available Not Available Not Available OxyContin 10 mg tablet,cr ush resistant ,extended release TAKE ONE TABLET BY MOUTH THREE TIMES A DAY. PARTIAL FILL UPON PATIENT REQUEST. M25.56 05/28 completed Not Available Not Available Not Available naloxone 4 mg/actuat ion nasal spray FOR SUSPECTE D OPIOID OVERDOSE . SPRAY 1ML IN 1 NOSTRIL. REPEAT AFTER 3 MINUTES IF NO/ MINIMAL RESPONSE active Not Available Not Available No t Available Vitals Date Recorded Body height Oxygen saturation Oxygen saturation in Arterial blood by Pulse oximetry Heart rate Body mass index (BMI) Body weight Systolic blood pressure Diastolic blood pressure Provider Name and Address Organization Details Last Updated DateTime 5 163.83 cm 98 % 98 % 92 /min 19.2 kg/m2 66613.0 4 g 110 mm[Hg] 64 mm[Hg] Whitley Bran MA [facility] 5 11:27:56 Date Recorded Body height Oxygen saturation Oxygen saturation in Arterial blood by Pulse oximetry Heart rate Systolic blood pressure Diastolic blood pressure Provider Name and Address Organization Details Last Updated DateTime 5 163.83 cm 99 % 99 % 92 /min 100 mm[Hg] 60 mm[Hg] Aguila Henson [facility] 5 15:19:58 Date Recorded Body height Oxygen saturation Oxygen saturation in Arterial blood by Pulse oximetry Heart rate Body temperature Systolic blood pressure Diastolic blood pressure Provider Name and Address Organization Details Last Updated DateTime 5 163.83 cm 97 % 97 % 87 /min 98.2 [degF] 108 mm[Hg] 62 mm[Hg] Whitley Bran MA [facility] 5 16:05:05 Date Recorded Systolic blood pressure Diastolic blood pressure Provider Name and Address Organization Details Last Updated DateTime 12/03/2023 115 mm[Hg] 64 mm[Hg] Dominic Nowak MD [address] [place] [address], [address], [facility] 12/03/2023 12:26:52 Date Recorded Body height Oxygen saturation Oxygen saturation in Arterial blood by Pulse oximetry Body mass index (BMI) Body weight Heart rate Systolic blood pressure Diastolic blood pressure Provider Name and Address Organization Details Last Updated DateTime 4 163.83 cm 98 % 98 % 18.8 kg/m2 29291.1 5 g 68 /min 130 mm[Hg] 68 mm[Hg] Roselyn Jaguar [facility] 4 11:50:31 Social History Question Answer Notes LastModified by Organization Details LastModified Time Tobacco Smoking Status Former Smoker quit april 2017, using e-cigs Nadia Gomez PA-C [address] [place] [address], [phone], [facility] 05/03/2011 11:29:03 How Much Tobacco Do You Chew? None Information not available 01/01/2013 Education 10 Information not available 12/22/2010 When Did You Quit Smoking? 1-5yearssi ncelastcig arette [email or web address] Information not available 11/29/2021 How Many Days In The Past Year Have You Had A Heavy Drinking Consumption (4+ Female, 5+ Male)? 0 Information not available 03/17/2015 Live Alone Or With Others? With Others Information not available 12/22/2010 CSRP - Narcotics Yes DR. NOWAK CONTRACT 05/29/2022 NACOTIC & BENZODIAZEPINE Information not available 03/18/2019 CSRP Contract Signed And Discussed Yes Information not available 03/18/2019 Patient Has Health Care Proxy Signed And In Chart Yes Ba [phone] [email or web address] Information not available 12/04/2023 CSRP - Stimulants No Informa tion not available 03/18/2019 CSRP - Benzodiazepines Yes Information not available 06/08/2022 Marital Status Engaged To Ba [employer] ormation not available 05/03/2011 Mosquito Repellent Used Routinely No Information not available 12/22/2010 What Was The Date Of Your Most Recent Tobacco Screening? 06/23/2024 [email or web address] Information not available 06/23/2024 How Many Children Do You Have? 2 Joce 1985, Rahul 1993; ; 1 Grandson 02/2022 skillip Information not available 02/23/2022 Are There Any Occupational Health Risks Where You Work? None Information not available 03/17/2015 What Is Your Current Pack Years? 30ormorepa [email or web address] Information not available 03/17/2015 What Is Your Relationship Status? Domestic Partner Information not available 01/01/2023 Seat Belts Used Routinely Yes Information not available 03/17/2015 Smoke Alarm In Home Yes Information not available 12/22/2010 How Much Tobacco Do You Smoke? No [email or web address] Information not available 04/03/2023 General Stress Level Medium Information not available 03/17/2015 How Many Years Have You Smoked Tobacco? 35 Information not available 03/17/2015 Sex: Female Functional Status Question Answer Note LastModified by Organizat ion Details LastModified Time Do you use any illicit or recreational drugs? No [email or web address] Information not available 11/29/2021 Do you or have you ever used any other forms of tobacco or nicotine? Yes [email or web address] Information not available 11/29/2021 Do you or have you ever used smokeless tobacco? Never used smokeless tobacco [email or web address] Information not available 10/31/2018 Are you currently employed? 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 Current user of electronic cigarettes 08/29/22/e m, 01/25/23 cb e cig [email or web address] Information not available 05/07/2024 Mental Status None recorded. Family History Relationship Description Onset Age of this Age Resolved Age Notes LastModified by Organization Details LastModified Time Mother Malignant tumor of breast 55 skillip Not available 2016 11:51:44 Father Sarcoidosis skillip Not availab le 03/11/2014 11:59:16 Notes:Dad- in 2004- 53 yo- Sarcoidosis-arthritis, asthma GERD (repeated stomach surgeries) DJD neck and back, HTN, BBB Mother- Breast Cancer, Mental illness- unknown. Not much contact Sister- Degenerative Disc disease, fibromyalgia and asthma, anxiety, 3 brothers-not healthy, DJD, mental health problems-in all 3-not much contact with them. MGM angina HTN PGM pancreatic cancer PGF bone cancer No thyroid disease to pt's knowledge. Women in familyall had KODY jemima in 20's for endometriosis and adenomyosis. Medical History Condition Response Thyroid Disease Y Gynecological HistoryNo gynecological history recorded. Obstetrics History GPAL:G 0 P 0 0 0 0 Immunizations Vaccine Type Date Status Note Provider Nam e and Address Organization Details Recorded Time Tdap 08/12/2010 completed Not Available [facility] 02/22/2019 02:26:04 Past Encounters Encounter ID Performer Location Encounter Start Date Encounter Closed Date Diagnosis/Indication Diagnosis SNOMED-CT Code Diagnosis ICD10 Code Diagnosis Note [id number] Alverto Fang MD , [facility], [address] [place] [address] 06/02/2002 11:37:18 02/26/2008 02:02:29 [id number] Angelina Pinon NP , [facility], [address] [place] [address] 08/27/2002 08:57:50 02/26/2008 02:02:29 [id number] [facility] RADIOLOGY [employer] [facility] , [facility] [address] [place] [address] 08/27/2002 09:17:50 02/26/2008 02:02:29 [id number] Alverto Fang MD , [facility], [address] [place] [address] 09/04/2002 10:51:40 02/26/2008 02:02:29 [id number] Alverto Fang MD , [facility], [address] [place] [address] 09/12/2002 11:10:21 02/26/2008 02:02:29 [id number] Alverto Fang MD , [facility], [address] [place] [address] 09/17/2002 12:14:09 02/26/2008 02:02:29 [id number] MD GAB Escudero, [facility], [address] [place] [address] 10/03/2002 10:43:16 02/26/2008 02:02:29 [id number] Alverto Fang MD , [facility], [address] [place] [address] 10/16/2002 11:07:28 10/16/2002 16:39:12 [id number] Alverto Fang MD , [facility], [address] [place] [address] 10/29/2002 16:00:22 10/30/2002 09:22:33 [id number] [facility] RADIOLOGY [facility] [address] [place] [address] 10/29/2002 16:30:06 10/29/2002 16:30:32 [id number] Alverto Fang MD , [facility], OFFICE [address] [place] [address] 11/04/2002 11:30:06 11/04/2002 17:36:02 [id number] Juan Mai MD Radiology , [facility] [address] [place] [address] 11/04/2002 11:41:28 11/04/2002 11:41:54 [id number] Alverto Fang MD , [facility], OFFICE [address] [place] [address] 12/10/2002 13:56:16 12/11/2002 08:35:01 [id number] Juan Mai MD [facility] , [address] [address] 12/10/2002 14:12:38 12/10/2002 14:13:02 [id number] Angelina Pinon NP , [facility], [address]ICE [address] [place] [address] 12/19/2002 09:19:57 12/19/2002 15:04:20 [id number] Angelina Pinon NP , [facility], [address]ICE [address] [place] [address] 01/26/2003 15:28:56 01/28/2003 12:44:32 [id number] [facility] RADIOLOGY [facility] [address] [place] [address] 02/02/2003 14:53:24 02/02/2003 14:53:28 [id number] Alverto Fang MD , [facility], OFFICE [address] [place] [address] 02/12/2003 15:51:10 02/12/2003 17:30:40 [id number] Alverto Fang MD , [facility], OFFICE [address] [place] [address] 02/27/2003 16:57:42 03/02/2003 07:44:22 [id number] SUDHAKAR Maier, [facility], OFFICE [address] [place] [address] 04/21/2003 11:21:22 04/21/2003 14:25:20 [id number] [facility] RADIOLOGY [employer] Radiology , [facility] [address] [place] [address] 04/21/2003 12:00:31 04/21/2003 12:00:51 [id number] Angelina Pinon NP , [facility], OFFICE [address] [place] [address] 04/27/2003 15:52:32 04/28/2003 12:49:32 [id number] Lennie mauricio, PT Physical Therapy, [address] [address] 05/01/2003 10:24:16 05/01/2003 15:44:41 [id number] MD GAB Escudero, [facility], OFFICE [address] [place] [address] 04/29/2003 11:53:02 04/29/2003 14:17:22 [id number] Lennie mauricio, PT Physical Therapy, [address] [address] 05/11/2003 11:28:54 05/12/2003 09:47:38 [id number] MD GAB Escudero, [facility], [address] [place] [address] 05/12/2003 10:54:52 05/12/2003 14:43:41 [id number] Alverto Fang MD , [facility], [address] [place] [address] 05/19/2003 09:24:21 05/19/2003 12:09:57 [id number] SUDHAKAR Maier , [facility], OFF[address] [place] [address] 05/26/2003 11:20:17 05/26/2003 14:22:03 [id number] MD GAB Escudero, [facility], [address] [place] [address] 05/29/2003 11:39:45 05/30/2003 11:34:40 [id number] Angelina Pinon NP , [facility], [address] [place] [address] 06/05/2003 10:14:47 06/05/2003 16:50:26 [id number] Alverto Fang MD , [facility], [address] [place] [address] 06/08/2003 09:25:16 06/08/2003 13:32:59 [id number] Alverto Fang MD , [facility], OFFICE [address] [place] [address] 06/15/2003 16:40:47 06/16/2003 08:13:53 [id number] Alverto Fang MD , [facility], [address] [place] [address] 06/22/2003 09:57:30 06/22/2003 13:35:22 [id number] Sachin Pavon PA-C , [facility] OFFICE [address] [facility] [address] 06/24/2003 09:33:53 06/25/2003 08:31:15 [id number] Alverto Fang MD , [facility], [address] [place] [address] 07/07/2003 11:54:16 07/07/2003 15:02:53 [id number] SUDHAKAR Maier , [facility], [address] [place] [address] 07/16/2003 12:06:11 07/17/2003 10:00:40 [id number] MD GAB Escudero, [facility], [address] [place] [address] 07/20/2003 14:05:21 07/20/2003 17:14:15 [id number] MD GAB Escudero, [facility], OFF[address] [place] [address] 07/28/2003 10:23:02 07/28/2003 14:26:51 [id number] MD GAB Escudero, [facility], [address] [place] [address] 08/13/2003 11:32:52 08/14/2003 10:09:17 [id number] Alverto Fang MD FP, [facility], [address] [place] [address] 08/20/2003 10:04:30 08/20/2003 12:53:15 [id number] Claritza Frank NP FP, [facility], [address] [place] [address] 08/12/2010 10:08:59 08/15/2010 08:19:52 [id number] [facility] RADIOLOGY [facility] [address] [place] [address] 08/12/2010 11:52:56 08/16/2010 14:07:48 [id number] Claritza Frank NP FP, [facility], OFFICE [address] [place] [address] 08/17/2010 09:52:29 08/17/2010 10:59:11 [id number] Claritza Frank NP , [facility], [address] [place] [address] 08/24/2010 08:25:06 08/25/2010 10:30:44 [id number] Claritza Frank NP , [facility], [address] [place] [address] 09/23/2010 10:54:02 09/23/2010 11:45:41 [id number] Dominic Nowak MD , [facility], [address] [place] [address] 12/22/2010 10:26:14 12/22/2010 11:03:17 [id number] Dominic Nowak MD , [facility], [address] [place] [address] 03/09/2011 09:10:55 03/09/2011 09:58:00 [id number] Cynthia Renae PA-C FP, [facility], [address] [place] [address] 04/21/2011 09:55:14 04/21/2011 10:44:22 [id number] [facility] 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 [facility] , [facility] [address] [place] [address] 04/24/2011 10:31:09 04/26/2011 11:07:56 [id number] Nadia Gomez PA-C [facility], [address] [address] 05/03/2011 10:47:22 05/04/2011 12:51:45 [id number] Dominic Nowak MD , [facility], OFFICE [address] [place] [address] 05/10/2011 09:56:18 05/10/2011 10:52:22 [id number] [facility] RADIOLOGY Technolog[employer] Radiology , [facility] [address] [place] [address] 05/19/2011 10:56:03 05/22/2011 14:34:05 [id number] Samuel Dhaliwal MD Endocrino logy, [address] [address] 07/24/2011 11:15:02 07/24/2011 12:09:00 [id number] Dominic Nowak MD , [facility], OFFICE [address] [place] [address] 09/07/2011 09:47:03 09/07/2011 11:06:48 [id number] Rahul Benites MD , [facility], [address] [place] [address] 10/06/2011 11:50:45 10/06/2011 12:40:37 [id number] Dominic Nowak MD , [facility], OFFICE [address] [place] [address] 10/11/2011 10:50:04 10/12/2011 07:45:46 [id number] Evin Hernandez MD Radiology , [address] [address] 10/11/2011 11:23:36 10/11/2011 12:01:25 [id number] Evin Hernandez MD Radiology , [address] [address] 10/11/2011 11:24:16 10/11/2011 12:01:34 [id number] Samuel Dhaliwal MD Endocrino logy, [address] [address] 10/20/2011 13:55:29 10/20/2011 15:04:08 [id number] Dominic Nowak MD , [facility], OFFICE [address] [place] [address] 01/18/2012 11:10:33 01/18/2012 12:14:45 [id number] Dominic Nowak MD , [facility], OFF[address] [place] [address] 01/24/2012 11:51:31 01/24/2012 13:35:00 [id number] Nikko Gage MD Radiology , [facility] [address] [place] [address] 01/24/2012 12:31:24 01/24/2012 12:43:49 [id number] Dominic Nowak MD , [facility], OFFICE [address] [place] [address] 03/14/2012 11:05:19 03/14/2012 11:59:52 [id number] Dominic Nowak MD , [facility], OFF[address] [place] [address] 04/25/2012 10:43:00 04/25/2012 11:46:22 [id number] Dominic Nowak MD , [facility], [address] [place] [address] 05/29/2012 10:48:07 05/29/2012 11:27:54 [id number] Dominic Nowak MD , [facility], OFF[address] [place] [address] 05/29/2012 12:41:23 05/29/2012 16:07:11 [id number] Rahul Benites MD , [facility], [address] [place] [address] 07/13/2012 14:47:21 07/13/2012 15:11:27 [id number] Dominic Nowak MD , [facility], OFFICE [address] [place] [address] 08/01/2012 11:02:22 08/02/2012 13:58:09 [id number] [facility], [facility], OFFICE [address] [place] [address] 12/06/2012 11:16:09 12/12/2012 09:09:03 Tobacco user 568587508 Chronic pain 58621825 ch ronic back pain - usually manged wiht Dr. Casey. will continue stable dosages. pt to continue to with Dr Casey after this prescripti on. PCP aware. stable dosage. [id number] Dominic Nowak MD , [facility], [address]ICE [address] [place] [address] 01/01/2013 10:49:38 01/01/2013 12:04:31 Chronic pain 77677911 Has been unable to tolerate SSRIs in past, which led to nausea or hives, also neurontin which led to nausea. [id number] Dominic Nowak MD , [facility], [address] [place] [address] 03/03/2013 11:28:44 03/03/2013 16:04:05 Acute upper respiratory infection 31582559 Educated patient that URI is a viral illness of the upper airways. It is not bacterial and does not benefit from antibiotic s. Average duration of URI is 7-10 days but in a recent trial, treatment at 7-10 days of illness with antibiotic s, intranasal steroids, or placebo did not alter natural history at 3 weeks. Recommende d symptomati c treatments including NSAIDS, semi-uprig ht sleep position, antihistam darrius at HS, limited course of nasal sympathomi metics and/or cough syrups, and nasal saline rinses with soft squeeze bottle or Neti pot. Return for fevers > 101 for 3 days, worsening sinus pain, or failure to resolve in 2-4 weeks. [id number] Dominic Nowak MD , [facility], [address] [place] [address] 03/11/2014 11:17:10 03/11/2014 12:20:06 Adult health examination 115776783 see Risk Assessment and Lifestyle Change Counseling section above; PT IS S/P hysterecto my for adenomyosi s, does not need paps; mother iwth young breast cancer, will begin screening, no colon cancer in family normal screening. Counseling [id number] Screening mammography 05716432 Hyperthyroidism 96798551 due for recheck Constipation 24011762 si de effect of opioids; start some other meds. Breast lump 03826942 valentina ssured small and mobile; will get mammo given preference /FH [id number] Dylan Lopez MD , [facility], [address] [place] [address] 10/24/2014 14:10:40 10/24/2014 14:36:23 Lymphadenopathy 17033317 Impaired dentition 468441376 Toothache 58634037 [id number] Dominic Nowak MD , [facility], [address] [place] [address] 03/17/2015 11:18:32 03/17/2015 12:11:46 Adult health examination 505364785 Z00.00 see Risk Assessment and Lifestyle Change Counseling section above. no early history of colon cancer in family; due for mammo, as mother had breast cancer; no cervix; Td due 2010 Counseling 471191049 Z71 .9 Anxiety state 095889647 F41.1 stable Chronic pain 67948350 G8 9.29 Has been unable to tolerate SSRIs in past, which led to nausea or hives, also neurontin which led to nausea. Seerubio Casey Migraine without aura 56 844860 G43.009 menstrual, has ovaries. occasional ly with aura Tobacco user 127469532 Z 72.0 counseled her and partner 5minutes on smoking cessation. schedule both with Jordan for smoking cessation counseling Abnormal weight loss 267 260574 R63.4 check labs; Perimenopa usal disorder 497523667 N95.9 starting to get emotional , sweat at night. Mar 2015 [id number] Dominic Nowak MD , [facility], [address] [place] [address] 08/24/2015 15:01:15 08/24/2015 16:02:06 Cigarette smoker 65721541 F17.210 Tobacco user 461289163 Z 72.0 counseled her and partner 5 minutes on smoking cessation. They are trying but finding it really hard Chronic pain 72960978 G8 9.29 Has been unable to tolerate SSRIs in past, which led to nausea or hives, also neurontin which led to nausea. 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 SBV with correction during exam. RTC if diplopia persists or becomes worse. EOM's intact. 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 Cigarette smoker 7917514 7 F17.210 counseled 3 minutes today [id number] Dominic Nowak MD , [facility], [address] [place] [address] 03/29/2016 11:16:36 03/30/2016 09:46:47 Adult health examination 560844606 Z00.00 see Risk Assessment and Lifestyle Change Counseling section above; needs mammo due to first degree relative with breast cancer; KODY hysterecto my 2009 no cervix. getting hot flashes. Td due 2020 Counseling 523452355 Z71 .9 Cigarette smoker 8743506 7 F17.210 counseled 3 minutes today; down to <5 cigarettes a day Tobacco user 603150325 Z 72.0 she is down to 2 cigarettes a day; using e cigarette as well. Severe sea jeromy affective disorder 4811770412 07536 F33.2 try a light box Drug dependence 89100815 9 F19.20 on chronic opioids for pain; dependent but not addicted, Anxiety state 996035795 F41.1 stable Hyperthyroidism 54544155 E05.90 continues mildly low. Migraine without aura 56 592558 G43.009 menstrual, has ovaries. occasional ly with aura Chronic pain 20664084 G8 9.29 Has been unable to tolerate SSRIs in past, which led to nausea or hives, also neurontin which led to nausea. Sees Amelia, who is tapering meds, she does not feel this is a good idea. currently on 20 mg 4 times a day Screening mammography 24 438504 Z12.31 Displaceme nt of lumbar intervertebral disc without myelopathy 57302726 M51.26 [id number] MD GAB Rodgers, [facility], OFF[address] [place] [address] 09/25/2016 13:28:01 09/25/2016 15:20:58 Cigarette smoker 63559308 F17.210 counseled 3 minutes today; down to <5 cigarettes a day Tobacco user 710656575 Z 72.0 she is down to 1-5 cigarettes a day; using e cigarette as well. Loss of hair 754686726 L 65.9 Perimenopa usal disorder 586617351 N95.9 starting to get emotional , sweat at night. Mar 2015 [id number] Dominic Nowak MD , [facility], [address] [place] [address] 11/29/2016 11:02:46 11/29/2016 12:20:14 Cigarette smoker 79611498 F17.210 Tobacco user 727252023 Z 72.0 counseled her and partner 5 minutes on smoking cessation. Hypothyroidism 76967354 E03.9 Adhesive c apsulitis of shoulder 381435189 M75.02 Insomnia 518665204 G47.0 0 trouble sleeping due to above [id number] MD GAB Rodgers, [facility], [address] [place] [address] 12/26/2016 13:40:02 12/26/2016 15:04:16 Cigarette smoker 31446234 F17.210 Tobacco user 767822834 Z 72.0 counseled her and partner 5 minutes on smoking cessation. Malaise 859837288 R53.81 check labs [id number] Dominic Nowak MD , [facility], [address] [place] [address] 04/10/2017 13:43:23 04/10/2017 14:24:52 Cigarette smoker 00259508 F17.210 Tobacco user 872435146 Z 72.0 counseled her and partner 5 minutes on smoking cessation. Subclinica l hyperthyroidism 342289335 E05.90 Malaise 006142105 R53.81 labs showed no abnormalit y; she went back on long acting; some improvemen t. Adhesive c apsulitis of shoulder 964015475 M75.02 expect 6 months to go... [id number] Dominic Nowak MD , [facility], [address] [place] [address] 08/23/2017 12:10:07 08/23/2017 13:05:35 Chronic pain 71459869 G89.29 seeing Bernaiche Drug dependence 60139304 9 F19.20 on chronic opioids for pain; dependent but not addicted, Severe sea jeromy affective disorder 7557339363 27491 F33.2 better in summer Hot sweats 468917493 R61 check labs; meds were changed 6 weeks ago which makes withdrawal less likely [id number] Dominic Nowak MD , [facility], [address] [place] [address] 12/04/2017 14:28:43 12/04/2017 15:44:29 Adult health examination 470099964 Z00.00 see Risk Assessment and Lifestyle Change Counseling section above. declines flu shot; accepts stool cards for colorectal cancer screening; aware next step is colonoscop y if positive. due for mammo; no Pap due to hysterecto my 2010; Td due 2020 Counseling 113080772 Z71 .9 Depression screening 171 313415 Z13.89 depression screening tool administer ed, entered into emr, scored and discussed, time greater than 7.5 minutes Chronic pain 19288317 R5 2 seeing [facility] Opioid dependence 646613 00 F11.20 Cigarette smoker 8043568 7 F17.210 Tobacco user 948627495 Z 72.0 counseled her and partner 5 minutes on smoking cessation. has QUIT x 9 months!!!! Screening mammography 24 782143 Z12.31 Screening for malignant neoplasm of colon 919030295 Z12.11 Drug dependence 19474134 9 F19.20 on chronic opioids for pain; dependent but not addicted, Displaceme nt of lumbar intervertebral disc without myelopathy 28610137 M51.26 [id number] MD GAB Rodgers, [facility], [address] [place] [address] 01/01/2018 13:23:21 01/01/2018 14:19:10 Chronic pain 31574789 R52 25/25 minutes spent counseling re her pain; did say I would take over but if she came to us it would be expressly to taper both opioids and benzos; taper would go to off completely , and I would be unlikely to restart the meds.she will consider. [id number] MD GAB Rodgers, [facility], [address] [place] [address] 05/28/2018 15:10:18 05/28/2018 17:32:41 Cigarette smoker 96832586 F17.210 Tobacco user 654649740 Z 72.0 counseled her and partner on smoking cessation. has QUIT x9 months!!!! Displaceme nt of lumbar intervertebral disc without myelopathy 94233252 M51.26 spent 45 minutes face to face discussing me resuming her narcotics; I said directly I would taper her or put her through withdrawal meds; she much prefers the idea of taper. Since she recently had a prescripti on we may be unable to fill meds; she is aware.Also discussed meds with her partner, also on BZD and narcotic, which is not doing him much good. agreed cannot have one partner in a marriage coming off narcotics and the otehr on; taper was written, she was told it may not be fillable. Anxiety 83034870 F41.9 she is also out of her valium script; also used more than was prescribed ; may not be able to fill. [id number] Dominic Nowak MD , [facility], [address] [place] [address] 06/11/2018 16:09:11 06/11/2018 17:23:06 Anxiety 06439184 F41.9 will need more meds this month for BZD use; Chronic pain 89505007 R5 2 15/15 minutes spent counseling re her pain; we will not consider opioids again until at least November. she was reassured she can hold on; she can return when she needs to. [id number] Dominic Nowak MD , [facility], [address] [place] [address] 10/31/2018 15:23:57 10/31/2018 16:14:59 Acute upper respiratory infection 49707722 J06.9 Educated patient that URI is a viral illness of the upper airways. It is not bacterial and does not benefit from antibiotic s. Average duration of URI is 7-10 days but in a recent trial, treatment at 7-10 days of illness with antibiotic s, intranasal steroids, or placebo did not alter natural history at 3 weeks. Recommende d symptomati c treatments including NSAIDS, semi-uprig ht sleep position, antihistam darrius at HS, limited course of nasal sympathomi metics and/or cough syrups, and nasal saline rinses with soft squeeze bottle or Neti pot. Return for fevers > 101 for 3 days, worsening sinus pain, or failure to resolve in 2-4 weeks. Nicotine dependence 5629 4008 F17.200 counseled re vaping for 3 minutes Recurrent major depression 03927610 F33.2 no changes [id number] Dominic Nowak MD , [facility], [address] [place] [address] 11/21/2018 11:36:17 11/21/2018 12:22:26 Cigarette smoker 79051659 F17.210 Tobacco user 262151362 Z 72.0 counseled her and partner on smoking cessation. has QUIT x9 months!!!! Recurrent major depression 19917833 F33.2 try low dose duloxetine , every other day, to see if she tolerates it. follow up 4 weeks Neck pain 96922794 M54.2 try PT for her chronic pain and fear of moving Anxiety state 430137390 F41.1 stable Pain of sh oulder region 66166199 M25.519 consider if injections would help? [id number] Dominic Nowak MD , [facility], [address] [place] [address] 12/09/2018 13:57:27 12/09/2018 15:04:30 Adult health examination 479537975 Z00.00 see Risk Assessment and Lifestyle Change Counseling section above. declines flu shot; accepts stool cards for colorectal cancer screening; aware next step is colonoscop y if positive. due for mammo; no Pap due to hysterecto my 2010; Td due 2020 Counseling 404601508 Z71 .9 Depression screening 171 834720 Z13.89 depression screening tool administer ed, entered into emr, scored and discussed, time greater than 7.5 minutes Chronic pain 09250851 R5 2 activity is very restricted ; she now sits in chair daily as opposed to any activity Screening for malignant neoplasm of colon 141484102 Z12.11 Screening mammography 24 843840 Z12.31 Active or passive immunization 362903391 Z23 Hypothyroidism 12634858 E03.9 [id number] Charlotte Pearl MD Sports Medicine, [facility] [address] [place] [address] 12/26/2018 14:02:41 12/26/2018 14:35:44 Pain of shoulder region 63362602 M25.511 Sheryl is a 53-year-ol d female with right shoulder pain which I believe is secondary to impingemen t syndrome and rotator cuff tendinosis . She has full range of motion today in the office passively and no evidence of adhesive capsulitis . She also has normal strength and no evidence of a larger full-thick ness rotator cuff tear. I reviewed this diagnosis today as well as discussing options for treatment including use of NSAIDs, physical therapy, corticoste roid injections , and potential surgery. I did advise returning to physical therapy and stressed the importance of a home exercise program to long-term symptom relief. I have also asked that she had x-rays done of the right shoulder to evaluate for any bony pathology contributi ng to her discomfort . She will plan to follow up with me in 8 weeks reevaluati on. If she has persistent discomfort she may benefit from a subacromia l corticoste roid injection in the future. I am of course happy to see her back sooner if she is having worsening pain or symptoms. [id number] Dominic Nowak MD , [facility], OFFICE [address] [place] [address] 01/07/2019 13:20:29 01/07/2019 14:55:01 Chronic pain syndrome 595593449 G89.4 has failed all antidepres sants; has failed all adjunctive pain modalities ; has been off narcotics since May. State she is NOT at baseline for activity or pain, would like to restart narcotic pain meds. discussed she cannnot be on BZD and opiates; she agrees.ask ed to come in to help with this question, asked her to try some distractio ns and journal, RTO 2 weeks to discuss lilly nseled 20/25 minutes re meds and pain syndrome [id number] Dominic Nowak MD , [facility], [address] [place] [address] 01/23/2019 10:23:31 01/23/2019 11:38:56 Chronic pain 46899955 R52 activity is very restricted ; she now sits in chair daily as opposed to any activity. previously was taking showers on her own; dressing on her own, sleeping in her bed. we agreed taper valium and start opioids again when she is off BZD. taper 1/4 tab a week which is what she found comfortabl e; follow up in mid feb when she is off and can restart meds. discussed need to NOT increase, goal is more activity not stevenson free. Anxiety 47726424 F41.9 taper beginning 01/23/19; 02/08 ta weekly [id number] MD GAB Rodgers, [facility], [address] [place] [address] 03/18/2019 13:50:40 03/18/2019 14:52:32 Chronic pain 84492294 R52 activity is very restricted ; she now sits in chair daily as opposed to any activity. previously was taking showers on her own; dressing on her own, sleeping in her bed. we agreed taper valium and start opioids again when she is off BZD. unable to taper further than 2.5 mg daily; will pause taper here and restart meds. discussed need to NOT increase, goal is more activity not stevenson free.Will start oxycodone 5mg TID and RTC on 04/01/19 to discuss. Claritza Posey in to discuss pain contract Opioid dependence 427669 F120 has Narcan at home Cigarette smoker [id number] 7 F17.210 Tobacco user 011913029 Z 72.0 counseled her and partner on smoking cessation. has QUIT x9+ months!!!! Recurrent major depression 63262484 F33.2 stable Anxiety state 547223707 F41.1 stable. will pause taper for 2-3 months and resume in June [id number] MD GAB Rodgers, [facility], [address] [place] [address] 04/01/2019 10:44:41 04/01/2019 11:11:24 Chronic pain 05000366 R52 currently on valium 2.5mg unable to taper further than 2.5 mg daily; will pause taper here.On Oxycodone 5mg TID has improvemen t in sleep and function and agree with [place] planfollow up q3m on csrp. Opioid dependence 687634 F1.20 has Narcan at home Pain of ri ght shoulder joint [id number] 8584861 M25.511 noted arthritic changes on xray from 12/2018. recommend PT. [id number] MD GAB Rodgers, [facility], [address] [place] [address] 07/02/2019 11:52:47 07/03/2019 12:41:25 Chronic pain 11173439 R52 currently on valium 2.5mg unable to taper further than 2.5 mg daily; will pause taper here.On Oxycodone 5mg TID has improvemen t in sleep and function and agree with [place] planfollow up q3m on csrp. Opioid dependence 817951 00 F11.20 has Narcan at home Low back pain 498354489 M54.5 Anxiety state 089416385 F41.1 stable. will pause taper for 2-3 months and resume after pandemic Pain of ri ght shoulder joint 2747167595 1874243 M25.511 possible frozen shudler again, pain radiating into neck and hands are sore when she wakes. has no computer with camera at home. follow up in 3 months [id number] Dominic Nowak MD , [facility], [address] [place] [address] 10/06/2019 13:36:34 10/07/2019 12:39:05 Chronic pain 41437722 R52 currently on valium 2.5mg unable to taper further than 2.5 mg daily; will pause taper here.On Oxycodone 5mg TID has improvemen t in sleep and function and agree with TX planfollow up q3m on csrp. Opioid dependence 738539 00 F11.20 has Narcan at home Gastroesop hageal reflux disease 229667695 K21.9 can't toelrate Pepcid; try this [id number] Dominic Nowak MD , [facility], [address] [place] [address] 12/23/2019 09:15:05 12/24/2019 10:23:29 Adult health examination 272909059 Z00.00 see Risk Assessment and Lifestyle Change Counseling section above. declines flu shot; accepts stool cards for colorectal cancer screening; aware next step is colonoscop y if positive. due for mammo; does yearly due to Mother with breast cancer 55; no Pap due to hysterecto my 2010; Td due 2020 Counseling 115609479 Z71 .9 including cardiovasc ular risk reduction counseling Depression screening 171 723319 Z13.89 depression screening tool administer ed, entered into emr, scored and discussed, time greater than 7.5 minutes Screening for alcohol abuse 907661330 Z13.39 Chronic pain 50600487 R5 2 currently on valium 2.5mg unable to taper further than 2.5 mg daily; will pause taper here.On Oxycodone 5mg TID has improvemen t in sleep and function and agree with [place] planfollow up q3m on csrp. has more pain with weather changes Opioid dependence 029704 00 F11.20 has Narcan at home Screening for malignant neoplasm of colon 325912580 Z12.11 [id number] Dominci Nowak MD , [facility], [address] [place] [address] 04/21/2020 10:43:32 04/22/2020 10:02:18 Chronic pain 74147940 R52 currently on valium 2.5mg unable to taper further than 2.5 mg daily; will pause taper here.On Oxycodone 5mg TID has improvemen t in sleep and function and agree with [place] planfollow up q3m on csrp. has more pain with weather changes Opioid dependence 028807 00 F11.20 has Narcan at home Recurrent major depression 61708238 F33.2 stable [id number] Dominic Nowak MD , [facility], [address] [place] [address] 07/28/2020 09:35:36 07/30/2020 10:25:45 Chronic pain 82918090 R52 currently on valium 2.5mg unable to taper further than 2.5 mg daily; will pause taper here.On Oxycodone 5mg TID has improvemen t in sleep and function and agree with TX planfollow up q3m on csrp. has more pain with weather changes Long-term current use of opiate analgesic drug 3187967769 03319 Z79.891 has narcan at home Neck pain 17028598 M54.2 increased after coughing fit; complains of difficulty peeing (getting urine out) which she ahs had before, tongling in legs. worried about herniation . no weakness, just icnreased pain and tingling. given extensive history watch for 2 weeks, if still having sx consider imaging [id number] Dominic Nowak MD , [facility], [address] [place] [address] 08/18/2020 10:32:54 08/19/2020 13:11:52 Neck pain 85536249 M54.2 increased after coughing fit; difficulty peeing is resolved. tingling in legs. worried about herniation . no weakness, just increased pain and tingling. given extensive history and improvemen t check in in 2 months [id number] Dominic Nowak MD , [facility], [address] [place] [address] 10/27/2020 11:43:58 10/27/2020 15:35:01 Chronic pain 80752191 R52 currently on valium 2.5mg unable to taper further than 2.5 mg daily; will pause taper here.On Oxycodone 5mg TID has improvemen t in sleep and function and agree with [place] planfollow up q3m on csrp. has more pain with weather changes discussed adjunctive meds; she has triedn and failed baclofen, gabapentin , amitriptyl renetta; has not tried carbamazep ine, lamotrigin e, or mexilitene as adjunctive meds. had reaction to amitriptyl renetta felt wierd ok to try carbamazep ine [id number] Dominic Nowak MD , [facility], [address] [place] [address] 11/29/2020 11:47:03 12/01/2020 14:50:39 Chronic pain 21343286 R52 currently on valium 2.5mg unable to taper further than 2.5 mg daily; will pause taper here.On Oxycodone 5mg TID has improvemen t in sleep and function and agree with [place] planfollow up q3m on csrp. has more pain with weather changes discussed adjunctive meds; she has triedn and failed baclofen, gabapentin , amitriptyl renetta; has not tried carbamazep ine, lamotrigin e, or mexilitene as adjunctive meds. had reaction to amitriptyl renetta felt wierd ; carbamaeze pine did not work. discussed voltaren gel, which she would like to try now. discussed palliative care and she is not interested at this time. plan is to try lamotrigin e next Long-term current use of opiate analgesic drug 1995420467 06403 Z79.891 has narcan at home [id number] Dominic Nowak MD , [facility], [address] [place] [address] 12/23/2020 13:26:52 01/14/2021 11:01:39 Chronic pain 80280604 R52 currently on valium 2.5mg unable to taper further than 2.5 mg daily; will pause taper here.On Oxycodone 5mg TID has improvemen t in sleep and function and agree with TX planfollow up q3m on csrp. has more pain with weather changes discussed adjunctive meds; she has tried and failed baclofen, gabapentin , amitriptyl renetta; has not tried carbamazep ine, lamotrigin e, or mexilitene as adjunctive meds. had reaction to amitriptyl renetta felt wierd ; carbamaeze pine did not work. discussed voltaren gel, which she tried and they did not work discussed palliative care and she is not interested at this time. plan is to try lamotrigin e next [id number] Dominic Nowak MD , [facility], [address] [place] [address] 01/17/2021 10:54:56 01/20/2021 09:34:24 Displacement of lumbar intervertebral disc without myelopathy 98836196 M51.26 pain continues; Chronic pain 90816685 R5 2 currently on valium 2.5mg unable to taper further than 2.5 mg daily; will pause taper here.On Oxycodone 5mg TID has improvemen t in sleep and function and agree with [place] planfollow up q3m on csrp. has more pain with weather changes discussed adjunctive meds; she has tried and failed baclofen, gabapentin , amitriptyl renetta; carbamazep ine, and lamotrigin e as adjunctive meds. discussed voltaren gel, which she tried and they did not work discussed palliative care and she is not interested at this time. reviewed mexilitene this does not appear to be indicated despite recommenda tions in UTD. she has tried everything , increase meds by one dose [id number] Dominic Nowak MD , [facility], [address] [place] [address] 02/22/2021 11:54:33 02/23/2021 09:56:42 Displacement of lumbar intervertebral disc without myelopathy 95729091 M51.26 pain continues; improved with increase in dose Screening mammography 24 738992 Z12.31 [id number] Dominic Nowak MD , [facility], [address] [place] [address] 05/18/2021 11:41:29 06/03/2021 16:09:57 Chronic pain 22684636 R52 currently on valium 2.5mg unable to taper further than 2.5 mg daily; will pause taper here.On Oxycodone 5mg QID has improvemen t in sleep and function and agree with [place] planfollow up q3m on csrp. has more pain with weather changes discussed adjunctive meds; she has tried and failed baclofen, gabapentin , amitriptyl renetta; carbamazep ine, and lamotrigin e as adjunctive meds. discussed voltaren gel, which she tried and they did not work discussed palliative care and she is not interested at this time. reviewed mexilitene this does not appear to be indicated despite recommenda tions in UTD. she has tried everything , increase meds by one dose Long-term current use of opiate analgesic drug 2402680915 56029 Z79.891 has narcan at home Long-term drug therapy 941209810 Z79.899 Screening for malignant neoplasm of colon 918098372 Z12.11 [id number] Dominic Nowak MD , [facility], [address] [place] [address] 08/23/2021 11:46:44 08/24/2021 15:57:02 Chronic pain 53068011 R52 currently on valium 2.5mg unable to taper further than 2.5 mg daily; will pause taper here.On Oxycodone 5mg QID has improvemen t in sleep and function and agree with TX planfollow up q3m on csrp. has more pain with weather changes discussed adjunctive meds; she has tried and failed baclofen, gabapentin , amitriptyl renetta; carbamazep ine, and lamotrigin e as adjunctive meds. discussed voltaren gel, which she tried and they did not work discussed palliative care and she is not interested at this time. reviewed mexilitene this does not appear to be indicated despite recommenda tions in UTD. she has tried everything , increase meds by one dose Long-term current use of opiate analgesic drug 8504620286 00469 Z79.891 has narcan at home Displaceme nt of lumbar intervertebral disc without myelopathy 76005092 M51.26 pain continues; improved with increase in dose Hyperthyroidism 67048496 E05.90 continues mildly low. Long-term current use of drug therapy 362336112 Z79.346 [id number] Dominic Nowak MD , [facility], [address] [place] [address] 11/29/2021 15:22:43 11/29/2021 17:08:48 Adult health examination 665155597 Z00.00 see Risk Assessment and Lifestyle Change Counseling section above. declines flu shot; accepts stool cards for colorectal cancer screening; aware next step is colonoscop y if positive. due for mammo; does yearly due to Mother with breast cancer 55; scheduled Feb 2022; no Pap due to hysterecto my 2010; Td due 2020; she declines; discussed zostavax and shingrix, she is considerin g but aware of post-herpe tic neuralgia Counseling 899809540 Z71 .9 including cardiovasc ular risk reduction counseling Depression screening 171 364471 Z13.31 depression screening tool administer ed, entered into emr, scored and discussed, time greater than 7.5 minutes Screening for alcohol abuse 365993288 Z13.39 Chronic pain 82713339 R5 2 currently on valium 2.5mg unable to taper further than 2.5 mg daily; will pause taper here.On Oxycodone 5mg QID has improvemen t in sleep and function and agree with [place] planfollow up q3m on csrp. has more pain with weather changes discussed adjunctive meds; she has tried and failed baclofen, gabapentin , amitriptyl renetta; carbamazep ine, and lamotrigin e as adjunctive meds. discussed voltaren gel, which she tried and they did not work discussed palliative care and she is not interested at this time. reviewed mexilitene this does not appear to be indicated despite recommenda tions in UTD. Long-term current use of opiate analgesic drug 4347856339 59077 Z79.891 has narcan at home Recurrent major depression 58481373 F33.2 stable [id number] MD GAB Rodgers, [facility], [address] [place] [address] 02/23/2022 13:42:22 02/23/2022 14:28:08 Chronic pain 07209884 R52 currently on valium 2.5mg unable to taper further than 2.5 mg daily; will pause taper here.On Oxycodone 5mg QID has improvemen t in sleep and function and agree with TX planfollow up q3m on csrp. has more pain with weather changes discussed adjunctive meds; she has tried and failed baclofen, gabapentin , amitriptyl renetta; carbamazep ine, and lamotrigin e as adjunctive meds. discussed voltaren gel, which she tried and they did not work discussed palliative care and she is not interested at this time. reviewed mexilitene this does not appear to be indicated despite recommenda tions in UTD. Long-term current use of opiate analgesic drug 6060426444 74412 Z79.891 has narcan at home Tobacco user 159705541 Z 72.0 We discussed your smoking today for more than 3 minutes. Cigarette use is the leading cause of preventabl e disease, disability , and in the [place]. We talked about tools and medication s available to help you in smoking cessation. We discussed utilizing our smoking cessation diving coach and online resources. Your personal goal: Pain of ri ght hip joint 5147031069 95479 M25.551 try patches which she has Recurrent major depression 79973451 F33.2 stable; does not tolerate meds Opioid dependence 791616 00 F11.20 has Narcan at home [id number] MD GAB Rodgers, [facility], [address] [place] [address] 05/29/2022 15:08:07 05/29/2022 16:08:38 Colonoscopy declined 7451591836 38130 Z53.20 Mitral valve disorder 11 188578 I05.9 stable Displaceme nt of lumbar intervertebral disc without myelopathy 23022895 M51.26 pain continues; improved with increase in dose Pruritic rash 83437494 L 28.2 menopause and allergies Postmenopausal state 764 89368 Z78.0 has ovaries but no cervix, going thru menopause 2022 Family his tory of breast cancer 603899286 Z80.3 yearly menopause [id number] Dominic Nowak MD , [facility], [address] [place] [address] 07/04/2022 13:55:01 07/04/2022 14:23:35 Pruritic rash 20324307 L28.2 allergic? try clritin, benadryl cream, cannot use steroid creams. allergic to steroids.c all if no better in 1-2 weeks. [id number] Dominic Nowak MD , [facility], [address] [place] [address] 08/29/2022 14:01:24 08/29/2022 17:54:41 Chronic pain 64406769 R52 currently on valium 2.5mg unable to taper further than 2.5 mg daily; will pause taper here.On Oxycodone 5mg QID has improvemen t in sleep and function and agree with [place] planfollow up q3m on csrp. has more pain with weather changes discussed adjunctive meds; she has tried and failed baclofen, gabapentin , amitriptyl renetta; carbamazep ine, and lamotrigin e as adjunctive meds. discussed voltaren gel, which she tried and they did not work discussed palliative care and she is not interested at this time. reviewed mexilitene this does not appear to be indicated despite recommenda tions in UTD. Long-term current use of opiate analgesic drug 2400503542 47311 Z79.891 has narcan at home Cough 72768973 R05.9 try claritin or honey [id number] Dominic Nowak MD , [facility], [address] [place] [address] 01/01/2023 13:52:06 01/01/2023 14:30:14 Adult health examination 396693904 Z00.00 see Risk Assessment and Lifestyle Change Counseling section above. declines flu shot; accepts stool cards for colorectal cancer screening; aware next step is colonoscop y if positive. due for mammo; does yearly due to Mother with breast cancer 55; scheduled Feb 2022; no Pap due to hysterecto my 2010; Td due 2020; she declines; discussed zostavax and shingrix, she is considerin g but aware of post-herpe tic neuralgia Depression screening 171 667213 Z13.31 depression screening tool administer ed Screening for alcohol abuse 844807743 Z13.39 Alcohol use screening tool administer ed Tobacco user 909609648 Z 72.0 We discussed your smoking today for more than 3 minutes. Cigarette use is the leading cause of preventabl e disease, disability , and in the [place]. We talked about tools and medication s available to help you in smoking cessation. We discussed utilizing our smoking cessation diving coach and online resources. Your personal goal:quit 2018!!!! Palpitations 90203338 R0 0.2 stable; [facility] will not be carrying corgard and nadolol (generic) does not work Chronic pain 29642821 R5 2 currently on valium 2.5mg unable to taper further than 2.5 mg daily; will pause taper here.On Oxycodone 5mg QID has improvemen t in sleep and function and agree with [place] planfollow up q3m on csrp. has more pain with weather changes discussed adjunctive meds; she has tried and failed baclofen, gabapentin , amitriptyl renetta; carbamazep ine, and lamotrigin e as adjunctive meds. discussed voltaren gel, which she tried and they did not work discussed palliative care and she is not interested at this time. reviewed mexilitene this does not appear to be indicated despite recommenda tions in UTD. [id number] Dominic Nowak MD , [facility], [address] [place] [address] 01/25/2023 13:22:34 01/25/2023 14:14:01 Palpitations 65621870 R00.2 taper with last 5 tabs to 20 mg daily (cut tabs), can try 10 mg; then try going without meds and see what happens; if disturbing palpitatio ns recur, start propranolo l.if needs meds would liekly switch to labetalol or carvedilol for more convenient dosing [id number] Dominic Nowak MD , [facility], [address] [place] [address] 03/07/2023 11:35:38 03/13/2023 16:23:14 Nicotine dependence 01131925 F17.200 We discussed your smoking/va ping today for more than 3 minutes. Cigarette/ pod use is the leading cause of preventabl e disease, disability , and in the [place]. We talked about tools and medication s available to help you in smoking/va ping cessation. We discussed utilizing our smoking cessation diving coach and online resources. Your personal goal:still using electronic cigarette all day. Palpitations 85156923 R0 0.2 likes propranolo l; conside rswitching to long acting at next visit Insomnia 936233828 G47.0 0 usual for her [id number] Dominic Nowak MD , [facility], [address] [place] [address] 04/03/2023 14:56:53 04/11/2023 12:22:56 Long-term current use of drug therapy 920369428 Z79.899 Anxiety state 543293017 F41.1 stable. tapered down a LOT on her meds. stable at this dose Displaceme nt of lumbar intervertebral disc without myelopathy 42468887 M51.26 pain continues; improved with increase in dose Hyperthyroidism 04984936 E05.90 continues mildly low. Endocrine/ metabolic screening 107479814 Z13.228 Pain of ri ght hip joint 2865577439 03050 M25.551 try patches which she has; increased hip pain check xray [id number] Dominic Nowak MD , [facility], [address] [place] [address] 07/24/2023 12:13:52 07/24/2023 13:29:42 Chronic pain 91038427 R52 currently on valium 2.5mg unable to taper further than 2.5 mg daily; will pause taper here.On Oxycodone 5mg QID has improvemen t in sleep and function and agree with [place] planfollow up q3m on csrp. has more pain with weather changes discussed adjunctive meds; she has tried and failed baclofen, gabapentin , amitriptyl renetta; carbamazep ine, and lamotrigin e as adjunctive meds. discussed voltaren gel, which she tried and they did not work discussed palliative care and she is not interested at this time. reviewed mexilitene this does not appear to be indicated despite recommenda tions in UTD. Long-term current use of opiate analgesic drug 3728173950 20114 Z79.891 has narcan at home Nicotine dependence 5629 4008 F17.200 We discussed your smoking/va ping today for more than 3 minutes. Smoking tobacco is the leading cause of preventabl e disease, disability , and in the [place]. Inhaling aerosolize d nicotine is widely believed to be safer than combustibl e tobacco, but still exposes people to numerous harmful substances , heavy metals like lead, and cancer-cau sing agents. Nicotine is harmful to developing brains and can disrupt the formation of brain circuits that control attention, learning, and susceptibi lity to addiction. We talked about tools and medication s available to help you in smoking/va ping cessation. We discussed utilizing our smoking cessation diving coach and online resources. Your personal goal: Generalize d osteoarthritis 319431629 M15.9 Perineural cyst 78120756 G96.191 known in sacral area Palpitations 93115046 R0 0.2 likes propranolo l; Low vision, both eyes 19 2082508 H54.2X11 [id number] Dominic Nowak MD , [facility], [address] [place] [address] 12/03/2023 11:40:46 12/14/2023 14:48:25 Chronic pain 23313830 R52 currently on valium 2.5mg unable to taper further than 2.5 mg daily; will pause taper here.On Oxycodone 5mg QID has improvemen t in sleep and function and agree with [place] planfollow up q3m on csrp. has more pain with weather changes discussed adjunctive meds; she has tried and failed baclofen, gabapentin , amitriptyl renetta; carbamazep ine, and lamotrigin e as adjunctive meds. Long-term current use of opiate analgesic drug 4039387357 45755 Z79.891 has narcan at home Vaccination not done 324 2418261 9108 Z28.29 Patient declined the td and flu vaccine at this time. 12/03/23 am Screening for malignant neoplasm of colon 835651615 Z12.11 Ex-cigarette smoker 2810 10149 Z87.891 quit almost 7 years ago; >30 PY hx, prefers not to be screened, discussed 12/03/23 Cervical lymphadenopathy 235901328 R59.0 feels as if she has a lump in back of throat; nothing seen on exam [id number] Dominic Nowak MD , [facility], [address] [place] [address] 03/05/2024 11:54:16 03/06/2024 09:23:57 Chronic pain 68607691 R52 currently on valium 2.5mg unable to taper further than 2.5 mg daily; will pause taper here.On Oxycodone 5mg QID has improvemen t in sleep and function and agree with [place] planfollow up q3m on csrp. has more pain with weather changes discussed adjunctive meds; she has tried and failed baclofen, gabapentin , amitriptyl renetta; carbamazep ine, and lamotrigin e as adjunctive meds.very weather dependent notices every change in barometer Long-term current use of opiate analgesic drug 9051144879 15675 Z79.891 has narcan at home Mitral valve prolapse 40 1721035 I34.1 renew meds; on beta dimple to prevent fast heartbeat Tension-type headache 39 3482176 G44.209 daily; back of neck; massage helps. Recurrent major depression 33814945 F33.2 stable; does not tolerate meds Ex-smoker 8347527 Z87.89 1 quit in 2016 [id number] Dominic Nowak MD , [facility], [address] [place] [address] 05/07/2024 11:12:54 05/08/2024 15:19:49 Chronic pain 28324748 R52 currently on valium 2.5 mg unable to taper further than 2.5 mg daily; will pause taper here.On Oxycodone 5mg QID has improvemen t in sleep and function and agree with [place] planfollow up q3m on csrp. has more pain with weather changes discussed adjunctive meds; she has tried and failed baclofen, gabapentin , amitriptyl renetta; carbamazep ine, and lamotrigin e as adjunctive meds.very weather dependent notices every change in barometer Long-term current use of opiate analgesic drug 1676142958 30054 Z79.891 has narcan at home Nicotine dependence 5629 4008 F17.200 We discussed your smoking/va ping today for more than 3 minutes.Sm oking tobacco is the leading cause of preventabl e disease, disability , and in the [place]. Inhaling aerosolize d nicotine is widely believed to be safer than combustibl e tobacco, but still exposes people to numerous harmful substances , heavy metals like lead, and cancer-cau sing agents. Nicotine is harmful to developing brains and can disrupt the formation of brain circuits that control attention, learning, and susceptibi lity to addiction. We talked about tools and medication s available to help you in smoking/va ping cessation. We discussed utilizing our smoking cessation diving coach and online resources. Your personal goal:cut down if possible Chronic back pain [id number] 002 M54.9 known tarlov cysts, pain in upper back, shoulders, severe headachesn o changes x years Generalize d osteoarthritis [id number] M15.9 known arthritis anywhere Chronic pain syndrome 37 [id number] G89.4 has failed all antidepres sants; has failed all adjunctive pain modalities ; had a trial off medication s for 9 months she did NOT have a tolerable lifestyle; she was restarted on low dose narcotic and BZD meds; she is aware of risks, but these doses are fractions of what she used to be on.suggest ed palliative care evaluation , she states she has had one about 20 years ago. She will consipder and call if she wants it. Psoriasis of scalp [id number] L40.9 she is sensitive to steroid cream, try any thick cream multiple times a day Cough [id number] R05.9 try claritin or honey; persisting over years. check xray as chronic smoker Endocrine/ metabolic screening [id number] Z13.228 [id number] Dominic Nowak MD , [facility], [address] [place] [phone] 06/12/2024 15:10:31 06/13/2024 08:05:54 Localized eruption of skin [id number] R21 see attached imageAcute on chronic inflammato ry dermatosis affecting periorbita l, postauricu lar, and nuchal regions, characteri zed by xerosis, pruritus, and irritation .Exacerbat ed by certain emollients like Esmer last nightDiscu ssed management typically targets skin barrier health as well as anti-infla mmatoriesP t with allergy to corticoste roids and NSAIDsDisc ussed with pt that that limits management options, so will instead focus on skin barrier healthDerm referral placedRe ewed skin barrier management - avoid body soap on face, as this can be harsh. Instead, opt for a gentle cleanser such as cerave or la benedict posay. Then pat face dry and apply a thick, fragrance- free moisturize r. May apply a petroleum- jelly based soln after (vaseline, aquaphor). May use the moisturize r multiple times a day.- try to avoid harsh chemicals or makeup to the area currentlyM ay take antihistam ine for itching sensationM ay also use cool compresses to assist with irritation and itching- please do not apply ice pack directly to skin. Use a cloth as a barrier and use for 10-15 minutes at a timef/u for new or worsening sxs [id number] Lesley Biswas MD , [facility], [address] [place] [address] 06/23/2024 15:50:08 06/25/2024 10:19:11 Psoriasis [id number] L40.9 derm referral pendingall ergic to steroid creams/pre dnisoneexa m consistent with psoriasist rial A& D and coal tarcall if concerns Health Concerns Section Related Observation LastModified by Organization Detai ls LastModified Time None Recorded Concern Status LastModified by Organization Details LastModified Time None Recorded Advance Directives Directive None Recorded Payers Encounter Date Sequence Insurance Name Policy Number Policy Askew Covered Member ID Askew Member ID Guarantor Name 12/03/2023 1 [employer] - DOS ON OR AFTER 2022 - [employer] (MEDICAID REPLACEMENT - HMO) Sheryl West [id number] Sheryl West 03/05/2024 1 [employer] - DOS ON OR AFTER 2022 - [employer] (MEDICAID REPLACEMENT - HMO) Sheryl West [id number] Sheryl West 05/07/2024 1 [employer] - DOS ON OR AFTER 2022 - [employer] (MEDICAID REPLACEMENT - HMO) Sheryl West [id number] Sheryl West 06/12/2024 1 [employer] - DOS ON OR AFTER 2022 - [facility] (MEDICAID REPLACEMENT - HMO) Sheryl West [id number] Sheryl West 06/23/[address] [facility] - DOS ON OR AFTER 2022 - [facility] (MEDICAID REPLACEMENT - HMO) Sheryl West [id number] Sheryl West Notes Date Note Type Note Provider Name and Address Organization Details Recorded Time 12/03/2023 text/html aVMG-Chronic José n 2Reported bypatient.Duration:Chr onic pain began >5years ago; Pain is stable condition; Pain is worsening; Pain is intermittent with periods of improvement and flaresof worsening pain Context:Pain is due to degenerative joint disease Barriers to Carefinancial status; other mental illness Ability to Manage Self CarePatient confidence in ability to manage their condition 4 with 10 being very confident and 1 being not confident ross Aggravating factors:activity; positional; lifting; physical labor; repetitive motion; standing; heat; cold ross Alleviating factors:rest; stress reduction Pain impacts on functionality:Patient is capable of the following activities pain free:nothing-has pain even lying still ,;Pain interferes with sleep;Pain interferes with physical activity Location of PainHead pain; Neck pain; Back pain; Pain in torso; Arm pain; Leg pain; Hip pain; Knee pain; Pelvic pain Quality of Paindull ache; sharp ache Patients goals for pain relief include:better sleep; improved activity level; improved ADL's; improved self care; better function in role Patient currently controls pain with :Narcotic medications Providers Involved in Patient CarePatient has previously seen physiatry,neuro,pain managament in managing pain; Patient has had conflicts with other medical providers about the use of pain medications; Patient has never had trouble controlling their use of any drug prescribed to them .; Patient has signed and understands narcotic contract ComorbiditiesPatient has never a problem with alcohol; Patient has never a problem with drugs.; Patient has depression; Patient has anxiety Ability to Manage Self CareThe patient was counseled about the risk of high dose opiate medications; The patient was given a RX and instructions on the use of Narcan in the event of an overdose reaction. Here for Med papa visit pain right side throat she can point to the spot Dominic Nowak MD [address] [place], [phone], [facility] 12/12/2023 18:35:39 03/05/2024 text/html a/vmg-smoking [id number] bypatient.Notes:using e cigarettes only x 7 yearsaVMG-Chronic Pain 2Reported bypatient.Duration:Chr onic pain began >5years ago; Pain is stable condition; Pain is worsening; Pain is intermittent with periods of improvement and flaresof worsening pain Context:Pain is due to degenerative joint disease Barriers to Carefinancial status; other mental illness Ability to Manage Self CarePatient confidence in ability to manage their condition 4 with 10 being very confident and 1 being not confident rsos Aggravating factors:activity; positional; lifting; physical labor; repetitive motion; standing; heat; cold ross Alleviating factors:rest; stress reduction Pain impacts on functionality:Patient is capable of the following activities pain free:nothing-has pain even lying still ,;Pain interferes with sleep;Pain interferes with physical activity Location of PainHead pain; Neck pain; Back pain; Pain in torso; Arm pain; Leg pain; Hip pain; Knee pain; Pelvic pain Quality of Paindull ache; sharp ache Patients goals for pain relief include:better sleep; improved activity level; improved ADL's; improved self care; better function in role Patient currently controls pain with :Narcotic medications Providers Involved in Patient CarePatient has previously seen physiatry,neuro,pain managament in managing pain; Patient has had conflicts with other medical providers about the use of pain medications; Patient has never had trouble controlling their use of any drug prescribed to them .; Patient has signed and understands narcotic contract ComorbiditiesPatient has never a problem with alcohol; Patient has never a problem with drugs.; Patient has depression; Patient has anxiety Ability to Manage Self CareThe patient was counseled about the risk of high dose opiate medications; The patient was given a RX and instructions on the use of Narcan in the event of an overdose reaction. VV - CSRP / Med Management / pt came to office yesterday to provide a urine sample. Here for Med papa visit pain right side throat she can point to the spot Dominic Nowak MD [address] [place], [phone], [facility] 03/05/2024 22:25:00 05/07/2024 text/html a/vmg-smoking [id number] bypatient.Notes:using e cigarettes only x 7 yearsaVMG-Chronic Pain 2Reported bypatient.Duration:Chr onic pain began >5years ago; Pain is stable condition; Pain is worsening; Pain is intermittent with periods of improvement and flaresof worsening pain Context:Pain is due to degenerative joint disease Barriers to Carefinancial status; other mental illness Ability to Manage Self CarePatient confidence in ability to manage their condition 4 with 10 being very confident and 1 being not confident ross Aggravating factors:activity; positional; lifting; physical labor; repetitive motion; standing; heat; cold ross Alleviating factors:rest; stress reduction Pain impacts on functionality:Patient is capable of the following activities pain free:nothing-has pain even lying still ,;Pain interferes with sleep;Pain interferes with physical activity Location of PainHead pain; Neck pain; Back pain; Pain in torso; Arm pain; Leg pain; Hip pain; Knee pain; Pelvic pain Quality of Paindull ache; sharp ache Patients goals for pain relief include:better sleep; improved activity level; improved ADL's; improved self care; better function in role Patient currently controls pain with :Narcotic medications Providers Involved in Patient CarePatient has previously seen physiatry,neuro,pain managament in managing pain; Patient has had conflicts with other medical providers about the use of pain medications; Patient has never had trouble controlling their use of any drug prescribed to them .; Patient has signed and understands narcotic contract ComorbiditiesPatient has never a problem with alcohol; Patient has never a problem with drugs.; Patient has depression; Patient has anxiety Ability to Manage Self CareThe patient was counseled about the risk of high dose opiate medications; The patient was given a RX and instructions on the use of Narcan in the event of an overdose reaction. does not do well in the damp and cold; does better in the summersdefinitely can feel weather coming Dominic Nowak MD [address] [place] [address], [phone], [facility] 05/07/2024 21:21:27 06/12/2024 text/html MORENA note: pt pres ents for rash facial area, ongoing since May but with increased severity this morning . Pt reports she used otc cream and now she has very red burning rash. Pt denies any other sx's no swelling no difficulty breathing or swallowing ,no wheezing ,no resp sx's, no further specific concerns at this time The patient, with psoriasis, presents with a flare-up and facial irritation.Pt presents with . Pt provides hx. She has been experiencing irritation and dryness behind her ears and on the back of her neck since this morning. Her history of psoriasis was diagnosed on May 07. Due to allergies, she is unable to use cortisone or steroids, which previously resulted in hives. Instead, she has been using thick creams.Last night, she applied Esmer Q10 with vitamin C, which led to severe facial irritation by morning, described as feeling like 'stuck it in an organ'. Prior to using Esmer, the affected areas were pink and red but not as severe. She has used Esmer for a couple of years without issues until now.Her skin is super dry, especially behind her ears, and Vaseline has helped calm the dryness. She experiences significant itching, particularly at night, which disrupts her sleep. She has not been taking antihistamines to manage the itching.The psoriasis primarily affects her scalp and hairline, and she notes that the condition tends to flare up and then subside. She is unable to use NSAIDs due to allergies. She is concerned about the impact of her skincare products and environmental factors like pollen on her condition.She is currently taking propranolol and inquires about potential interactions with antihistamines. She has not tried specific eczema or psoriasis skincare products before and is seeking advice on appropriate cleansers and moisturizers. SUDHAKAR DUMONT [address] [place] [address], [phone], [facility] 06/12/2024 16:56:23 06/23/2024 text/html rash getting wor se. Using product recommended but make it burn. Derm referral pending. Lesley Biswas MD [address] [place] [address], [phone], [facility] 06/23/2024 16:23:19 OBGyn Episode No OBEpisode recorded.
--- NOTE | 2024-07-17 08:22 | PM.EVENT ---
Event Note Date of Service: 07/16/24 Event Note: The patient's x-rays were reviewed and the pneumothorax on the right side is moderate. Patient has not been symptomatic. She does have coughing but isn't sure breath too much isn't doing any strenuous activities and her saturations were good in the emergency room. However reviewing her clinical situation and the x-ray findings it would benefit her to have a chest tube placed and reinflate the long completely in order to prevent getting a trapped lung. This was discussed with the patient who lives in [place] and after reviewing with our team it [facility] it was decided that the patient would probably be best served by going to the emergency room at [facility] and getting treated there where there is thoracic surgery backup. At this point we do not have thoracic surgery backup. The patient has been relatively asymptomatic and stable so I think that this plan suffices for her care. I personally called triage at [facility] and gave them report of her situation to the triage nurse in preparation for her arrival to the emergency room there. She understood and agreed with the plan Time Spent With Patient Time: Total time managing care of this patient today ____ minutes.
== END 2024-07-15 18:57 | disposition home or self-care (01) ==
PROVIDERS: Emergency Provider Emergency Medicine Emergency Medical Services; PCP Family Medicine
DX: J93.9 Pneumothorax, unspecified (principal); R05.9 Cough, unspecified
CPT/HCPCS: 71046; 99283

== ENCOUNTER → 2024-07-15 12:33 | Outpatient (BNV) | payer MEDICAID, SELFPAY | PROVIDERS: PCP Family Medicine; Visit Provider Radiology Diagnostic Radiology | DX: J98.11 Atelectasis (principal) | CPT/HCPCS: 71046 ==